=== PATIENT | female | born 1960 | race Caucasian/White ===

== ENCOUNTER 2019-03-14 21:51 | Emergency (ER) | payer OTHER ==
[~2019-03-14] VITALS: Ht 170.2 cm; Wt 70.8 kg
--- OUTSIDE RECORDS SUMMARY | ~2019-03-14 | XMS | Clinical Summary ---
Demographics + + + | Address | [address] | | | [place] [address] | + + + | Home Phone | | + + + | Preferred Language | Unknown | + + + | Marital Status | | + + + | Christianity Affiliation | 1027 | + + + | Race | Unknown | + + + | Ethnic Group | Unknown | + + + Author + + + | Author | [facility] | | | and [place] | + + + | Organization | [facility] | | | and [place] | + + + | Address | Unknown | + + + | Phone | Unavailable | + + + Support + + + + + | Name | Relationship | Address | Phone | + + + + + | Gordon Ball | ECON | [address] | | | | | [place] [address] | | + + + + + Care Team Providers + +------+ + | Care Grocery Manager Name | Role | Phone | + +------+ + | Ahsan Howard MD | PP | | + +------+ + Allergies + + + + + + | Active Allergy | Reactions | Severity | Noted | Comments | | | | | Date | | + + + + + + | Codeine | Itching | Low | 07/22/20 | | | | | | 14 | | + + + + + + | Doxycycline | Hives | Medium | 07/22/20 | | | | | | 14 | | + + + + + + | Hydromorphone Hcl | Other (See Comments) | Medium | 07/22/20 | Memory loss, | | | | | 14 | 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 | | | | | | Willing to try | | | | | | Dilaudid again for | | | | | | pain control. | + + + + + + Medications + + + +---------+------+------+-------+ | Medication | Sig | Dispensed | Refills | Star | End | Statu | | | | | | t | Date | s | | | | | | Date | | | + + + +---------+------+------+-------+ | traZODone | Take 100 mg by mouth | | 0 | | | Activ | | (DESYREL) 100 mg | nightly. | | | | | e | | tablet | | | | | | | + + + +---------+------+------+-------+ | Cyanocobalamin | Take by mouth | | 0 | | | Activ | | (VITAMIN B-12 PO) | Daily. | | | | | e | + + + +---------+------+------+-------+ | Cholecalciferol | Take 2 tablets by | | 0 | | | Activ | | (VITAMIN D PO) | mouth Daily. | | | | | e | + + + +---------+------+------+-------+ | pramipexole | Take 1 mg by mouth 3 | | 0 | | | Activ | | (MIRAPEX) 1 MG | times daily as | | | | | e | | tablet | needed. | | | | | | + + + +---------+------+------+-------+ | Multiple Vitamin | Take by mouth | | 0 | | | Activ | | (MULTI VITAMIN DAILY | Daily. | | | | | e | | PO) | | | | | | | + + + +---------+------+------+-------+ | hydrOXYzine | Take 25 mg by mouth | | 0 | | | Activ | | pamoate (VISTARIL) | as needed for | | | | | e | | 25 mg capsule | Itching. | | | | | | + + + +---------+------+------+-------+ | leflunomide | Take 20 mg by mouth | | 0 | | | Activ | | (ARAVA) 20 mg tablet | Daily. | | | | | e | + + + +---------+------+------+-------+ | cetirizine | Take 10 mg by mouth | | 0 | | | Activ | | (ZYRTEC) 10 mg | Daily. | | | | | e | | tablet | | | | | | | + + + +---------+------+------+-------+ | cyclobenzaprine | Take 0.5-1 tablets | 90 | 3 | 07/0 | | Activ | | (FLEXERIL) 10 mg | by mouth 3 times | tablet | | 9/20 | | e | | tablet | daily as needed for | | | 15 | | | | | Muscle spasms. | | | | | | + + + +---------+------+------+-------+ | gabapentin | Take 1 capsule by | 90 | 1 | 10/0 | | Activ | | (NEURONTIN) 400 mg | mouth 3 times daily. | capsule | | 9/20 | | e | | capsuleIndications: | | | | 15 | | | | S/P lumbar fusion | | | | | | | + + + +---------+------+------+-------+ | citalopram | Take 40 mg by mouth | | 0 | | | Activ | | (CELEXA) 40 mg | Daily. | | | | | e | | tablet | | | | | | | + + + +---------+------+------+-------+ | gabapentin | Take 100 mg by mouth | | 0 | | | Activ | | (NEURONTIN) 100 mg | Daily. | | | | | e | | capsule | | | | | | | + + + +---------+------+------+-------+ | oxyCODONE | Take 5 mg by mouth | | 0 | | | Activ | | (ROXICODONE) 5 mg | every 4 hours as | | | | | e | | tablet | needed for Pain. | | | | | | + + + +---------+------+------+-------+ | levothyroxine | Take 50 mcg by mouth | | 0 | | | Activ | | (SYNTHROID, | every morning | | | | | e | | LEVOTHROID) 50 mcg | (before breakfast). | | | | | | | tablet | | | | | | | + + + +---------+------+------+-------+ | LOSARTAN POTASSIUM | Take 1 tablet by | | 0 | | | Activ | | PO | mouth Daily. | | | | | e | + + + +---------+------+------+-------+ | oxybutynin | Take 2.5 mg by mouth | | 0 | | | Activ | | (DITROPAN) 2.5 mg | 2 times daily | | | | | e | | TABS | (before meals). | | | | | | + + + +---------+------+------+-------+ Active Problems + + + | Problem | Noted Date | + + + | Peripheral neuropathy | 04/05/2016 | + + + | Sacroiliitis | 03/01/2016 | + + + | S/P lumbar fusion | 06/04/2015 | + + + | Hypotension | 05/22/2015 | + + + | Lumbar radiculopathy | 03/17/2015 | + + + | DDD (degenerative disc disease), lumbar | 03/17/2015 | + + + | Spondylolisthesis | 03/17/2015 | + + + Family History + + +------+ + | Medical History | Relation | Name | Comments | + + +------+ + | High blood pressure | Mother | | | + + +------+ + | Thyroid disease | Mother | | | + + +------+ + + +------+ + + | Relation | Name | Status | Comments | + +------+ + + | Father | | | Gun accident | | | | (Age | | | | | 30) | | + +------+ + + | Mother | | | old age | | | | (Age | | | | | 89) | | + +------+ + + | Son | | Alive | | + +------+ + + Social History + +-------+ +--------+------+ | Tobacco Use | Types | Packs/Day | Years | Date | | | | | Used | | + +-------+ +--------+------+ | Never Smoker | | | | | + +-------+ +--------+------+ + +---+---+---+ | Smokeless Tobacco: | | | | | Never Used | | | | + +---+---+---+ + + +---------+ + | Alcohol Use | Drinks/We | oz/Week | Comments | | | ek | | | + + +---------+ + | No | | | | + + +---------+ + + + + | Sex Assigned at | Date Recorded | | | | + + + | Not on file | | + + + + + + + | Job Start Date | Occupation | Industry | + + + + | Not on file | Not on file | Not on file | + + + + + + + + | Travel History | Travel Start | Travel End | + + + + + + | No recent travel history available. | + + Last Filed Vital Signs + + + + | Vital Sign | Reading | Time Taken | + + + + | Blood Pressure | 144/74 | 04/05/20161003 PDT | + + + + | Pulse | 68 | 04/05/20161003 PDT | + + + + | Temperature | 37.4 C (99.3 F) | 05/22/20151599 PDT | + + + + | Respiratory Rate | 18 | 03/01/2016 1355 PDT | + + + + | Oxygen Saturation | 94% | 05/22/20151599 PDT | + + + + | Inhaled Oxygen | - | - | | Concentration | | | + + + + | Weight | 70.8 kg (156 lb) | 04/05/20161003 PDT | + + + + | Height | 172.7 cm (5' 8") | 04/05/20161003 PDT | + + + + | Body Mass Index | 23.72 | 04/05/20161003 PDT | + + + + Plan of Treatment + + + + + | Health Maintenance | Due Date | Last Done | Comments | + + + + + | Vaccine: | | | | | Dtap/Tdap/Td (1 - | 7 | | | | Tdap) | | | | + + + + + | Cervical Cancer | | | | | Screening (Pap) | 8 | | | + + + + + | Vaccine: Zoster (1 | | | | | of 2) | 8 | | | + + + + + | Vaccine: Influenza | | | | | (Season Ended) | 9 | | | + + + + + Implants + +------+--------+ +--------+--------+--------+ | Implanted | Type | Area | Manufacture | Device | Shelf | Model | | | | | r | | Expira | / | | | | | | Identi | tion | Serial | | | | | | fier | Date | / Lot | + +------+--------+ +--------+--------+--------+ | Chips Cancellous 30cc - | | Left: | OSTEOTECH - | | 08/23/ | [id number] | | [id number]: Qty: 1 | | Back | OSTT | | 2017 | | | on 05/20/2015 by Jones Adames | | | | | | /[id number] | | MD Darlene | | | | | | 0-030 | | | | | | | | / | + +------+--------+ +--------+--------+--------+ | Putty Hot Spring 10cc Dbm - | | Left: | OSTEOTECH - | | 02/22/ | [id number] | | [id number]: Qty: 1 | | Back | OSTT | | 2017 | /[id number] | | on 05/20/2015 by Jones Adames | | | | | | 5-032 | | MD Darlene | | | | | | / | + +------+--------+ +--------+--------+--------+ | Graft Infuse Bone Kit Xs - | | Left: | SOFAMOR | | 04/26/ | [id number] | | [id number]: Qty: 1 on | | Back | DANEK - DIV | | 2016 | 0 / | | 05/20/2015 by Jones Adames, | | | MEDTRONIC | | | /[id number] | | | | | - SFDK | | | [id number] | + +------+--------+ +--------+--------+--------+ | Imp Spn Intbdy Xlw | | Left: | NUVASIVE - | | | [id number] | | [id number] | | Back | NVSV | | | 5 / / | | [id number]: Qty: 1 on | | | | | | | | 05/20/2015 by Jones Adames, | | | | | | | | MD | | | | | | | + +------+--------+ +--------+--------+--------+ | Imp Spn Spcr Cornt Xl | | Left: | NUVASIVE - | | | [id number] | | [id number] | | Back | NVSV | | | 5 / / | | [id number]: Qty: 1 on | | | | | | | | 05/20/2015 by Jones Adames, | | | | | | | | MD | | | | | | | + +------+--------+ +--------+--------+--------+ | Screw Polyax Precept 6.5x45 - | | Left: | NUVASIVE - | | | [id number] | | [id number]: Qty: 4 | | Back | NVSV | | | 5A / / | | on 05/20/2015 by Jones Adames | | | | | | | | MD Darlene | | | | | | | + +------+--------+ +--------+--------+--------+ | Screw Set - | | Left: | NUVASIVE - | | | [id number] | | [id number]: Qty: 6 on | | Back | NVSV | | | 0 / / | | 05/20/2015 by Jones Adames, | | | | | | | | MD | | | | | | | + +------+--------+ +--------+--------+--------+ | Santos Ti Prebent Lordtc 70mm - | | Left: | NUVASIVE - | | | [id number] | | [id number]: Qty: 2 on | | Back | NVSV | | | 0 / / | | 05/20/2015 by Jones Adames, | | | | | | | | MD | | | | | | | + +------+--------+ +--------+--------+--------+ | Screw Polyax Prcpt 7.5x45mm - | | Left: | NUVASIVE - | | | [id number] | | [id number]: Qty: 2 | | Back | NVSV | | | 5A / / | | on 05/20/2015 by Jones Adames | | | | | | | Azul Colon MD | | | | | | | + +------+--------+ +--------+--------+--------+ Results Not on filefrom Last 3 Months Insurance + +--------+ +--------+ +---------+------+ | Payer | Benefi | Subscriber | Effect | Phone | Address | Type | | | t Plan | ID | wyatt | | | | | | / | | Dates | | | | | | Group | | | | | | + +--------+ +--------+ +---------+------+ | EM[employer]OYEE [employer] | EBMS | [id number] | 12/28/19 | [phone] | | PPO | | MGMT | PPO | | 15-Pre | 5 | | | | | | | sent | | | | + +--------+ +--------+ +---------+------+ + +--------+ +--------+ + + | Guarantor Name | Accoun | Relation to | Date | Phone | Billing Address | | | t Type | Patient | of | | | | | | | | | | + +--------+ +--------+ + + | Ale Ball | Person | Self [birth year] | [address] | | | al/Fam | | 1960 | [phone] | [place] [address] | | | e[place]raim | | | 9 (Home) | | + +--------+ +--------+ + + Advance Directives Patient has advance care planning documents, and code status on file. For more information, please contact:[facility] [place] [address] + + + + + | Code Status | Date | Date | Comments | | | Activated | Inactivated | | + + + + + | Full Code | 05/20/2015 | 05/22/2015 | | | | 14:26 | 18:58 | | + + + + +
--- OUTSIDE RECORDS SUMMARY | ~2019-03-14 | XMS | Clinical Summary ---
Demographics + + + | Address | [address] | | | [place] [address] | + + + | Home Phone | | + + + | Preferred Language | Unknown | + + + | Marital Status | | + + + | Yazidism Affiliation | Unknown | + + + | Race | Unknown | + + + | Ethnic Group | Unknown | + + + Author + + + | Author | [employer] [facility] [employer] [facility] | + + + | Organization | [facility] | + + + | Address | Unknown | + + + | Phone | Unavailable | + + + Support + + +---------+ + | Name | Relationship | Address | Phone | + + +---------+ + | Nav Mae | ECON | Unknown | | + + +---------+ + | Vira Segura | ECON | Unknown | | + + +---------+ + Care Team Providers + +------+ + | Care Salon/Spa Manager Name | Role | Phone | + +------+ + | Brandon Howard MD | PP | | + +------+ + Allergies + + + + + + | Active Allergy | Reactions | Severity | Noted | Comments | | | | | Date | | + + + + + + | Codeine | Itching | Medium | 01/30/20 | | | | | | 12 | | + + + + + + | Hydromorphone | Hallucinations | Medium | 01/30/20 | | | | | | 12 | | + + + + + + | Doxycycline | Hives | High | 01/30/20 | | | | | | 12 | | + + + + + + | Cephalexin | Rash | Medium | 01/30/20 | | | | | | 12 | | + + + + + + Current Medications + + +--------+---------+------+------+-------+ | Prescription | Sig. | Disp. | Refills | Star | End | Statu | | | | | | t | Date | s | | | | | | Date | | | + + +--------+---------+------+------+-------+ | pramipexole | Take 0.5 mg by mouth | | | | | Activ | | (MIRAPEX) 0.5 MG | nightly. | | | | | e | | tablet | | | | | | | + + +--------+---------+------+------+-------+ | escitalopram | Take 10 mg by mouth | | | | | Activ | | (LEXAPRO) 10 MG | daily. | | | | | e | | tablet | | | | | | | + + +--------+---------+------+------+-------+ | gabapentin | Take 400 mg by mouth | | | | | Activ | | (NEURONTIN) 400 MG | 3 (three) times | | | | | e | | capsule | daily. | | | | | | + + +--------+---------+------+------+-------+ | traZODone | Take 100 mg by mouth | | | | | Activ | | (DESYREL) 100 MG | nightly. | | | | | e | | tablet | | | | | | | + + +--------+---------+------+------+-------+ | hydrOXYzine | Take 25 mg by mouth | | | | | Activ | | (VISTARIL) 25 MG | as needed for | | | | | e | | capsule | Itching. | | | | | | + + +--------+---------+------+------+-------+ | leflunomide | Take 20 mg by mouth | | | | | Activ | | (ARAVA) 20 MG tablet | daily. | | | | | e | + + +--------+---------+------+------+-------+ | Multiple Vitamin | Take 1 tablet by | | | | | Activ | | (MULTIVITAMIN) | mouth daily. | | | | | e | | tablet | | | | | | | + + +--------+---------+------+------+-------+ | lisinopril | Take 40 mg by mouth | | | | | Activ | | (ZESTRIL) 40 MG | daily. | | | | | e | | tablet | | | | | | | + + +--------+---------+------+------+-------+ | cyclobenzaprine | Take 10 mg by mouth | | | | | Activ | | (FLEXERIL) 10 MG | 3 (three) times | | | | | e | | tablet | daily as needed for | | | | | | | | Muscle spasms. | | | | | | + + +--------+---------+------+------+-------+ | solifenacin | Take 10 mg by mouth | | | | | Activ | | (VESICARE) 10 MG | daily. | | | | | e | | tablet | | | | | | | + + +--------+---------+------+------+-------+ | oxyCODONE | Take 1 tablet by | 150 | 0 | 12/3 | | Activ | | (ROXICODONE) 5 MG | mouth every 4 (four) | tablet | | 0/20 | | e | | immediate release | hours as needed for | | | 16 | | | | tabletIndications: | Pain. | | | | | | | Rheumatoid arthritis | | | | | | | | involving multiple | | | | | | | | sites with positive | | | | | | | | rheumatoid factor | | | | | | | | (HCC), Facet | | | | | | | | arthritis of lumbar | | | | | | | | region, Disc | | | | | | | | disorder of lumbar | | | | | | | | region, Stenosis of | | | | | | | | lumbosacral spine, | | | | | | | | Right lumbar | | | | | | | | radiculitis, | | | | | | | | Spondylolisthesis of | | | | | | | | lumbar region, | | | | | | | | Fusion of spine of | | | | | | | | lumbar region | | | | | | | + + +--------+---------+------+------+-------+ | oxyCODONE | Take 1 tablet by | 150 | 0 | 12/0 | | Activ | | (ROXICODONE) 5 MG | mouth every 4 (four) | tablet | | 1/20 | | e | | immediate release | hours as needed for | | | 16 | | | | tabletIndications: | Pain. | | | | | | | Rheumatoid arthritis | | | | | | | | involving multiple | | | | | | | | sites with positive | | | | | | | | rheumatoid factor | | | | | | | | (HCC), Facet | | | | | | | | arthritis of lumbar | | | | | | | | region, Disc | | | | | | | | disorder of lumbar | | | | | | | | region, Stenosis of | | | | | | | | lumbosacral spine, | | | | | | | | Right lumbar | | | | | | | | radiculitis, | | | | | | | | Spondylolisthesis of | | | | | | | | lumbar region, | | | | | | | | Fusion of spine of | | | | | | | | lumbar region | | | | | | | + + +--------+---------+------+------+-------+ | oxyCODONE | Take 1 tablet by | 150 | 0 | 11/0 | | Activ | | (ROXICODONE) 5 MG | mouth every 4 (four) | tablet | | /20 | | e | | immediate release | hours as needed for | | | 16 | | | | tabletIndications: | Pain. | | | | | | | Rheumatoid arthritis | | | | | | | | involving multiple | | | | | | | | sites with positive | | | | | | | | rheumatoid factor | | | | | | | | (HCC), Facet | | | | | | | | arthritis of lumbar | | | | | | | | region, Disc | | | | | | | | disorder of lumbar | | | | | | | | region, Stenosis of | | | | | | | | lumbosacral spine, | | | | | | | | Right lumbar | | | | | | | | radiculitis, | | | | | | | | Spondylolisthesis of | | | | | | | | lumbar region, | | | | | | | | Fusion of spine of | | | | | | | | lumbar region | | | | | | | + + +--------+---------+------+------+-------+ Active Problems + + + | Problem | Noted Date | + + + | Opioid use agreement exists | 06/23/2016 | + + + | Fusion of spine of lumbar region | 06/11/2015 | + + + + + | Overview: Dr. Adames, L3 through 5, 05/20/15. | + + + + + | RA (rheumatoid arthritis) | 03/12/2015 | + + + | Facet arthritis of lumbar region | 03/12/2015 | + + + | Disc disorder of lumbar region | 03/12/2015 | + + + | Stenosis of lumbosacral spine | 03/12/2015 | + + + | Spondylolisthesis of lumbar region | 03/12/2015 | + + + | Urinary incontinence | 03/12/2015 | + + + | Right lumbar radiculitis | 03/12/2015 | + + + | Sleep apnea, obstructive | 03/12/2015 | + + + | Depression with anxiety | 01/30/2012 | + + + + + | Last Assessment & Plan: Patient has a long history of | | depression. It seems to be worse since her estrogen surgery. She | | has been on multiple medications to try and control this. 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 This recent data to suggest this may be related to her | | gastric bypass surgery. He may also be related to pigment build | | up of organo phosphate was in her blood stream after weight loss. | + + Family History + + +------+ + | Medical History | Relation | Name | Comments | + + +------+ + | Early | Father | | | + + +------+ + | Diabetes type II | Maternal | | | | | Grandfath | | | | | er | | | + + +------+ + | Diabetes type II | Maternal | | | | | Grandmoth | | | | | er | | | + + +------+ + | Heart disease | Mother | | | + + +------+ + | Hypertension | Mother | | | + + +------+ + | Diabetes type II | Paternal | | | | | Grandfath | | | | | er | | | + + +------+ + | Diabetes type II | Paternal | | | | | Grandmoth | | | | | er | | | + + +------+ + + +------+ + + | Relation | Name | Status | Comments | + +------+ + + | Brother | | Alive | | + +------+ + + | Brother | | Alive | | + +------+ + + | Father | | | Accidental | | | | (Age | | | | | 42) | | + +------+ + + | Maternal Grandfather | | | | + +------+ + + | Maternal Grandmother | | | | + +------+ + + | Mother | | | | | | | (Age | | | | | 90) | | + +------+ + + | Paternal Grandfather | | | | + +------+ + + | Paternal Grandmother | | | | + +------+ + + | Sister | | Alive | | + +------+ + + Social History + +-------+ +--------+------+ | Tobacco Use | Types | Packs/Day | Years | Date | | | | | Used | | + +-------+ +--------+------+ | Former Smoker | | | | | + +-------+ +--------+------+ + +-------+---+---+ | Smokeless Tobacco: | Snuff | | | | Former User | | | | + +-------+---+---+ + + +---------+ + | Alcohol Use | Drinks/We | oz/Week | Comments | | | ek | | | + + +---------+ + | No | | | | + + +---------+ + + + + | Sex Assigned at | Date Recorded | | | | + + + | Not on file | | + + + Last Filed Vital Signs + + + + | Vital Sign | Reading | Time Taken | + + + + | Blood Pressure | 183/98 | 09/23/2016 1:55 PM PDT | + + + + | Pulse | 67 | 09/23/2016 1:55 PM PDT | + + + + | Temperature | - | - | + + + + | Respiratory Rate | - | - | + + + + | Oxygen Saturation | 95% | 09/23/2016 1:55 PM PDT | + + + + | Inhaled Oxygen | - | - | | Concentration | | | + + + + | Weight | 69.9 kg (154 lb) | 09/23/2016 1:55 PM PDT | + + + + | Height | 170.2 cm (5' 7") | 09/23/2016 1:55 PM PDT | + + + + | Body Mass Index | 24.12 | 09/23/2016 1:55 PM PDT | + + + + Plan [...] | + + + + + | Breast Cancer | | | | | Screening | 8 | | | | (Mammogram) | | | | + + + + + | Colon Cancer | | | | | Screening | 8 | | | | (Colonoscopy) | | | | + + + + + | Vaccine: Zoster (1 | | | | | of 2) | 8 | | | + + + + + | Vaccine: Influenza | | | | | (Season Ended) | 9 | | | + + + + + Results Not on filefrom Last 3 Months Insurance + +--------+ +------+-------+---------+ | Payer | Benefi | Subscriber | Type | Phone | Address | | | t Plan | ID | | | | | | / | | | | | | | Group | | | | | + +--------+ +------+-------+---------+ | COMMERCIAL OTHER | COMMER | [id number] | | | | | | CIAL | | | | | | | GENERI | | | | | | | C PLAN | | | | | + +--------+ +------+-------+---------+ + +--------+ +--------+ + + | Guarantor Name | Accoun | Relation to | Date | Phone | Billing Address | | | t Type | Patient | of | | | | | | | | | | + +--------+ +--------+ + + | ALE ROBERTS | Person | Self [birth year] Work: | [address] | | | al/Fam | | 1960 | [phone] [place] [address] | | | e[place]im | | | [phone] | | + +--------+ +--------+ + +
--- OUTSIDE RECORDS SUMMARY | ~2019-03-14 | XMS | Clinical Summary ---
Demographics + + + | Address | [address] | | | [place] [address] | + + + | Home Phone | | + + + | Preferred Language | Unknown | + + + | Marital Status | | + + + | Temple Affiliation | Unknown | + + + | Race | White | + + + | Ethnic Group | Not or | + + + Author + + + | Author | [facility] | + + + | Organization | [facility] | + + + | Address | Unknown | + + + | Phone | Unavailable | + + + Support + + +---------+ + | Name | Relationship | Address | Phone | + + +---------+ + | Reese Ball | ECON | Unknown | | + + +---------+ + Care Team Providers + +------+ + | Care Devops Engineer Name | Role | Phone | + +------+ + | Ahsan oHward MD | PP | | + +------+ + Source Comments [facility]LE [facility] and [facility] In[facility] Allergies + + + + + + | Active Allergy | Reactions | Severity | Noted | Comments | | | | | Date | | + + + + + + | Codeine | Pruritus | Low | 03/14/20 | | | | | | 14 | | + + + + + + | Hydromorphone (Bulk) | Unknown | High | 03/14/20 | Pt reports | | | | | 14 | confusion and memory | | | | | | loss | + + + + + + | Doxycycline | Hives | High | 03/14/20 | | | | | | 14 | | + + + + + + Current Medications + + +---------+---------+------+------+-------+ | Prescription | Sig. | Disp. | Refills | Star | End | Statu | | | | | | t | Date | s | | | | | | Date | | | + + +---------+---------+------+------+-------+ | citalopram 40 mg | Take 40 mg by mouth | | | | | Activ | | oral tablet | once daily. | | | | | e | + + +---------+---------+------+------+-------+ | gabapentin 400 mg | Take 400 mg by mouth | | | | | Activ | | oral capsule | two times daily. | | | | | e | + + +---------+---------+------+------+-------+ | levothyroxine 75 | Take 75 mcg by mouth | | | | | Activ | | mcg oral tablet | once daily. | | | | | e | + + +---------+---------+------+------+-------+ | | Take 1 tablet by | | | | | Activ | | HYDROcodone-acetamin | mouth every four | | | | | e | | ophen 10-325 mg oral | hours as needed. Not | | | | | | | tablet | to exceed 3250 mg | | | | | | | | of acetaminophen | | | | | | | | from all products | | | | | | | | per 24 hour period. | | | | | | + + +---------+---------+------+------+-------+ | atenolol 25 mg | Take 25 mg by mouth | | | | | Activ | | oral tablet | once daily. | | | | | e | + + +---------+---------+------+------+-------+ | pramipexole 1 mg | Take 1 mg by mouth | | | | | Activ | | oral tablet | three times daily. | | | | | e | + + +---------+---------+------+------+-------+ | cyanocobalamin, | Take by mouth. | | | | | Activ | | vitamin B-12, | Liquid daily | | | | | e | | (VITAMIN B-12) 1,000 | | | | | | | | mcg/mL oral drops | | | | | | | + + +---------+---------+------+------+-------+ | cholecalciferol | Take 400 Units by | | | | | Activ | | 400 unit oral tablet | mouth once daily. | | | | | e | + + +---------+---------+------+------+-------+ | multivitamin oral | Take 1 capsule by | | | | | Activ | | capsule | mouth once daily. | | | | | e | + + +---------+---------+------+------+-------+ | ergocalciferol | Take 1 capsule by | 36 | 0 | 02/2 | | Activ | | 50,000 unit oral | mouth every seven | capsule | | 7/20 | | e | | capsuleIndications: | days. Indications: | | | 15 | | | | vitamin D deficiency | VITAMIN D DEFICIENCY | | | | | | + + +---------+---------+------+------+-------+ | leflunomide 20 mg | Take 1 tablet by | 30 | 3 | 02/2 | | Activ | | oral | mouth once daily. | tablet | | 7/20 | | e | | tabletIndications: | Indications: | | | 15 | | | | rheumatoid arthritis | RHEUMATOID ARTHRITIS | | | | | | + + +---------+---------+------+------+-------+ | pilocarpine 5 mg | Take 1 tablet by | 90 | 11 | 02/2 | | Activ | | oral tablet | mouth three times | tablet | | 7/20 | | e | | | daily. Avoid | | | 15 | | | | | administering with | | | | | | | | high-fat meal. | | | | | | + + +---------+---------+------+------+-------+ | escitalopram | Take 10 mg by mouth | | | | | Activ | | oxalate 10 mg oral | once daily. | | | | | e | | tablet | | | | | | | + + +---------+---------+------+------+-------+ Active Problems + + + | Problem | Noted Date | + + + | Microcytic anemia | 07/09/2014 | + + + | Rheumatoid arthritis (HCC) | 03/14/2014 | + + + + + | Overview: ICD10 | + + + + + | Sicca (HCC) | 03/14/2014 | + + + Social History + +-------+ +--------+------+ | Tobacco Use | Types | Packs/Day | Years | Date | | | | | Used | | + +-------+ +--------+------+ | Never Smoker | | | | | + +-------+ +--------+------+ + + + | Sex Assigned at | Date Recorded | | | | + + + | Not on file | | + + + Last Filed Vital Signs + + + + | Vital Sign | Reading | Time Taken | + + + + | Blood Pressure | 148/81 | 04/22/2015 1:08 PM PDT | + + + + | Pulse | 54 | 04/22/2015 1:08 PM PDT | + + + + | Temperature | - | - | + + + + | Respiratory Rate | - | - | + + + + | Oxygen Saturation | - | - | + + + + | Inhaled Oxygen | - | - | | Concentration | | | + + + + | Weight | 76.7 kg (169 lb) | 04/22/2015 1:08 PM PDT | + + + + | Height | 167.6 cm (5' 6") | 07/03/2014 2:09 PM PDT | + + + + | Body Mass Index | 27.28 | 04/22/2015 1:08 PM PDT | + + + + Plan of Treatment + + + + + | Health Maintenance | Due Date | Last Done | Comments | + + + + + | Influenza (Flu) | | | | | vaccination (#1) | 8 | | | + + [...] | | | + +--------+ +------+-------+---------+ | MULTIPLAN | MULTIP | [phone] | PPO | | | | | SARBJIT | | | | | + +--------+ +------+-------+---------+ + +--------+ +--------+ + + | Guarantor Name | Accoun | Relation to | Date | Phone | Billing Address | | | t Type | Patient | of | | | | | | | | | | + +--------+ +--------+ + + | ALE BALL | Person | Self [birth year] Home: | [address] | | | al/Fam | | 1959 | [phone] | [place] [address] | | | ephraim | | | [phone] | | + +--------+ +--------+ + +
--- OUTSIDE RECORDS SUMMARY | ~2019-03-14 | XMS | Clinical Summary ---
Demographics + + + | Address | [address] | | | [place] [address] | + + + | Home Phone | | + + + | Preferred Language | Unknown | + + + | Marital Status | | + + + | Scientologist Affiliation | 1027 | + + + | Race | Unknown | + + + | Ethnic Group | Unknown | + + + Author + + + | Author | [facility] | | | and [place] | + + + | Organization | [facility] | | | and [...] | | | | | [place] [address] | | + + + + + Care Team Providers + +------+ + | Care Director Park Name | Role | Phone | + [...] | OSTEOTECH - | | 08/23/ | [id number] | | [id number]: Qty: 1 | | Back | OSTT | | 2017 | | | on 05/20/2015 by Jones Adames | | | | | | /[id number] | | MD Darlene | | | | | | 0-030 | | | | | | | | / | + +------+--------+ +--------+--------+--------+ | Putty [place] 10cc Dbm - | | Left: | OSTEOTECH - | | 02/22/ | [id number] | | [id number]: Qty: 1 | | Back | OSTT | | 2017 | /[id number] | | on 05/20/2015 by Jones Adames | | | | | | 5-032 | | MD Darlene | | | | | | / | + +------+--------+ +--------+--------+--------+ | Graft Infuse Bone Kit Xs - | | Left: | SOFAMOR | | 04/26/ | [id number] | | [id number]: Qty: 1 on | | Back | DANEK - DIV | | 2016 | 0 / | | 05/20/2015 by Jones Adames, | | | MEDTRONIC | | | /[id number] | | | | | - SFDK | | | [id number] | + +------+--------+ +--------+--------+--------+ | Imp Spn Intbdy Xlw | | Left: | NUVASIVE - | | | [id number] | | [id number] - | | Back | NVSV | | | 5 / / | | [id number]: Qty: 1 on | | | | | | | | 05/20/2015 by Jones Adames, | | | | | | | | MD | | | | | | | + +------+--------+ +--------+--------+--------+ | Imp Spn Spcr Cornt Xl | | Left: | NUVASIVE - | | | [id number] | | [id number] | | Back | NVSV | | | 5 / / | | [id number]: Qty: 1 on | | | | | | | | 05/20/2015 by Jones Adames, | | | | | | | | MD | | | | | | | + +------+--------+ +--------+--------+--------+ | Screw Polyax Precept 6.5x45 - | | Left: | NUVASIVE - | | | [id number] | | [id number]: Qty: 4 | | Back | NVSV | | | 5A / / | | on 05/20/2015 by Jones Adames | | | | | | | | MD Darlene | | | | | | | + +------+--------+ +--------+--------+--------+ | Screw Set - | | Left: | NUVASIVE - | | | [id number] | | [id number]: Qty: 6 on | | Back | NVSV | | | 0 / / | | 05/20/2015 by Jones Adames, | | | | | | | | MD | | | | | | | + +------+--------+ +--------+--------+--------+ | Santos Ti Prebent Lordtc 70mm - | | Left: | NUVASIVE - | | | [id number] | | [id number]: Qty: 2 on | | Back | NVSV | | | 0 / / | | 05/20/2015 by Jones Adames, | | | | | | | | MD | | | | | | | + +------+--------+ +--------+--------+--------+ | Screw Polyax Prcpt 7.5x45mm - | | Left: | NUVASIVE - | | | [id number] | | [id number]: Qty: 2 | | Back | NVSV [...] | EMPLOYEE BENE ADMIN | EBMS | [id number] | 12/28/19 | [phone] | | PPO | | MGMT | [...] al/Fam | | 1960 | [phone] | [place] [address] | | | ephraim | | | 9 (Home) | | + +--------+ +--------+ + + Advance Directives Patient has advance care planning documents, and code status on file. For more information, please contact:[facility] [place] [address] + + + + + | Code Status | Date | Date | Comments | | | Activated | Inactivated | | + + + + + | Full Code | 05/20/2015 | 05/22/2015 | | | | 14:26 | 18:58 | | + + + + +
--- OUTSIDE RECORDS SUMMARY | ~2019-03-14 | XMS | Clinical Summary ---
Demographics + + + | Address | [address] | | | [place] [address] | + + + | Home Phone | | + + + | Preferred Language | Unknown | + + + | Marital Status | | + + + | Advent Affiliation | Unknown | + + + [...] Team Providers + +------+ + | Care Loss Prevention/Safety District Manager Name | Role | Phone | + +------+ + | Ahsan Howard MD | PP | | + +------+ + Source Comments [facility] Allergies + + + + + + [...] | 1959 | [phone] | [place] [address] | | | ephraim | | | [phone] | | + +--------+ +--------+ + +
--- OUTSIDE RECORDS SUMMARY | ~2019-03-14 | XMS | Clinical Summary ---
Demographics + + + | Address | [address] | | | [place] [address] | + + + | Home Phone | | + + + | Preferred Language | Unknown | + + + | Marital Status | | + + + | Congregation Affiliation | Unknown | + + + | Race | Unknown | + + + | Ethnic Group | Unknown | + + + Author + + + | Author | [facility] | + + + | Organization | [facility] | + + + | [...] Team Providers + +------+ + | Care Skills Auditor Name | Role | Phone | + [...] +------+-------+---------+ | COMMERCIAL OTHER | COMMER | [phone] | | | | | | CIAL [...] Self | [birth year] | Work: | [address] | | | al/Fam | | 1960 | [phone] | [place] [address] | | | ephraim | | | [phone] | | + +--------+ +--------+ + +
[~2019-03-14 21:51] MED LIST: ARAVA20 MG PO; ATENOLOL25 MG PO; ATIVAN0.5 MG PO; BENADRYL25 MG PO; CELEXA40 MG PO; CILOXAN5 ML OU; CIMZIA400 MG; CYCLOBENZAPRINE10 MG PO; DAILY VITAMIN1 EAC2 PO; IBUPROFEN200 M1 PO; IBUPROFEN200 MG PO; LEVOTHYROXINE50 MCG PO; LEVOTHYROXINE75 MCG PO; LEVSIN-SL0.125 MG SL; LEXAPRO10 MG PO; LISINOPRIL40 MG PO; LORTAB 7.5-5001 EACH PO; LOSARTAN POTAS100 MG PO; MELOXICAM15 MG PO; METHOTREXATE2.5 MG; MIRAPEX1 MG PO; NAPROSYN375 MG PO; NEURONTIN400 MG PO; NORCO 5-325 TA1 EACH PO; NORCO 7.5-3251 EACH PO; OXYCODONE HCL5 MG PO; PERCOCET 5-3251 EACH PO; PERCOCET 7.5-31 EACH PO; PREDNISONE20 MG PO; PRILOSEC20 MG PO; SULFAMETHOXAZO1 EAC1 PO; VISTARIL25 MG PO; VITAMIN B12-FO1 EACH PO; VITAMIN D400 UNI2 PO
--- OUTSIDE RECORDS SUMMARY | 2019-03-14 21:54 | XMS ---
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 Silver VISIT COUNT (12 MO.) [address] [place] [address] [place] TOTAL 2 NOTE: Visits indicate total known visits. ED/UCC VISIT TRACKING (12 MO.) 03/14/2019 21:51 [facility] [place] TYPE: Emergency COMPLAINT: - FEVER 12/17/2018 05:32 [facility] [place] TYPE: Emergency DIAGNOSES: - sinus infection ear pain INPATIENT VISIT TRACKING (12 MO.) No inpatient visits to display in this time frame [id number]
== END 2019-03-15 00:33 | disposition home or self-care (01) ==
LOC: ED 21:51
DX: B34.9 Viral infection, unspecified (principal); M06.9 Rheumatoid arthritis, unspecified; I10 Essential (primary) hypertension; E03.9 Hypothyroidism, unspecified; F32.9 Major depressive disorder, single episode, unspecified; F41.9 Anxiety disorder, unspecified; Z79.899 Other long term (current) drug therapy; Z51.81 Encounter for therapeutic drug level monitoring
CPT/HCPCS: 71046; 80053; 81001; 83605; 85025; 85610; 85730; 87502; 99283-25

== ENCOUNTER 2021-03-08 05:06 | Emergency (ER) | payer OTHER ==
[~2021-03-08] VITALS: Ht 170.2 cm; Wt 70.8 kg
--- OUTSIDE RECORDS SUMMARY | 2021-03-08 05:12 | XMS ---
PreManage Notification: NIRU ROBERTS Security Contemporary Or Modern Dancer Events No recent Security Events currently on file CRITERIA MET - PDMP - ED - Positive COVID-19 Lab Result - [facility] CARE PROVIDERS DEB [facility] 03/15/2019-Current PHONE: [phone] Adrienne has no Care Guidelines for this patient. E.Dianna VISIT COUNT (12 MO.) 1 [facility] 1 VER[facility]ICA [place] TOTAL 2 NOTE: Visits indicate total known visits. ED/UCC VISIT TRACKING (12 MO.) 03/08/2021 05:09 VERONICA [place] TYPE: Emergency COMPLAINT: - CHILLS, DEHYDRATED 12/14/2020 14:20 [facility] Arun ZHAO TYPE: Emergency DIAGNOSES: - Personal history of other diseases of the circulatory system - CP - Hyperlipidemia, unspecified - Family history of ischemic heart disease and other diseases of the circulatory system - Chest pain, unspecified - Chest Pain INPATIENT VISIT TRACKING (12 MO.) [facility]2020 [facility] DIAGNOSES: - Chest pain, unspecified - Family history of ischemic heart disease and other diseases of the circulatory system - Hyperlipidemia, unspecified - Personal history of other diseases of the circulatory system [id number]
[2021-03-08] MEDS ORDERED: ZOFRAN4 MG PO (05:47)
== END 2021-03-08 06:07 | disposition home or self-care (01) ==
LOC: ED 05:06
DX: U07.1 COVID-19 (principal); I10 Essential (primary) hypertension; E03.9 Hypothyroidism, unspecified; Z88.5 Allergy status to narcotic agent; Z88.1 Allergy status to other antibiotic agents; Z79.899 Other long term (current) drug therapy
CPT/HCPCS: 99283

== ENCOUNTER 2021-06-07 09:42 | Emergency (ER) | payer OTHER ==
[~2021-06-07] VITALS: Ht 170.2 cm; Wt 70.8 kg
[~2021-06-07 09:42] MED LIST changes: +ZOFRAN4 MG PO
--- OUTSIDE RECORDS SUMMARY | 2021-06-07 09:44 | XMS ---
PreManage Notification: NIRU ROBERTS Security Accounting Instructor Events No recent Security Events currently on file CRITERIA MET - PDMP CARE PROVIDERS DEB [facility] 03/15/2019-Current PHONE: [phone] Adrienne has no Care Guidelines for this patient. E.Dianna VISIT COUNT (12 MO.) 1 [facility] 2 VERONICA [place] TOTAL 3 NOTE: Visits indicate total known visits. 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 therapy 12/14/2020 14:20 [facility] Carito ZHAO TYPE: Emergency DIAGNOSES: - Personal history of other diseases of the circulatory system - CP - Hyperlipidemia, unspecified - Family history of ischemic heart disease and other diseases of the circulatory system - Chest pain, unspecified - Chest Pain INPATIENT VISIT TRACKING (12 MO.) 12/14/2020 14:20 [place] Sera ZHAO TYPE: Surgical Services DIAGNOSES: - Chest pain, unspecified - Family history of ischemic heart disease and other diseases of the circulatory system - Hyperlipidemia, unspecified - Personal history of other diseases of the circulatory system [id number]
[2021-06-07] MEDS ORDERED: CLONIDINE HCL0.1 MG PO (11:56)
== END 2021-06-07 12:12 | disposition home or self-care (01) ==
LOC: ED 09:42
DX: F11.23 Opioid dependence with withdrawal (principal); I10 Essential (primary) hypertension; E03.9 Hypothyroidism, unspecified; Z88.5 Allergy status to narcotic agent; Z88.1 Allergy status to other antibiotic agents; Z79.899 Other long term (current) drug therapy
CPT/HCPCS: 99284

== ENCOUNTER 2021-11-10 22:04 | Emergency (ER) | payer OTHER ==
[~2021-11-10] VITALS: Ht 170.2 cm; Wt 70.8 kg
[~2021-11-10 22:04] MED LIST changes: +CLONIDINE HCL0.1 MG PO
--- OUTSIDE RECORDS SUMMARY | 2021-11-10 22:08 | XMS ---
PreManage Notification: NIRU ROBERTS Security Sql Server Bi Developer Events No recent Security Events currently on file CRITERIA MET - PDMP CARE PROVIDERS DEB [facility] Current PHONE: Unknown Adrienne has no Care Guidelines for this patient. [place]ert VISIT COUNT (12 MO.) 1 [facility] 3 VERONICA [place] TOTAL 4 NOTE: Visits indicate total known visits. ED/UCC VISIT TRACKING (12 MO.) 11/10/2021 22:05 VERONICA [place] TYPE: Emergency COMPLAINT: - SOB 06/07/2021 09:42 VERONICA [place] TYPE: Emergency COMPLAINT: - WITHDRAW DIAGNOSES: - Hypothyroidism, unspecified - Other residential (current) drug therapy - Allergy status to narcotic agent - Opioid dependence with withdrawal - Allergy status to other antibiotic agents - Essential (primary) hypertension 03/08/2021 05:09 [facility]ICA [place] TYPE: Emergency COMPLAINT: - CHILLS, DEHYDRATED DIAGNOSES: - Essential (primary) hypertension - Allergy status to narcotic agent - Other fatigue - COVID-19 - Allergy status to other antibiotic agents - Hypothyroidism, unspecified - Other residential (current) drug therapy 12/14/2020 14:20 [facility] Arun [facility] TYPE: Emergency DIAGNOSES: - Personal history of other diseases of the circulatory system - CP - Hyperlipidemia, unspecified - Family history of ischemic heart disease and other diseases of the circulatory system - Chest pain, unspecified - Chest Pain INPATIENT VISIT TRACKING (12 MO.) 12/14/2020 14:20 [facility] Arun [facility] TYPE: Surgical Services DIAGNOSES: - Chest pain, unspecified - Family history of ischemic heart disease and other diseases of the circulatory system - Hyperlipidemia, unspecified - Personal history of other diseases of the circulatory system [id number]
--- NOTE | 2021-11-12 07:17 | EKG ---
[facility] [address] [place], [place] [address] Signed Normal sinus rhythm Normal ECG No previous ECGs available Confirmed by ANGELA FOURNIER MD ([id number]) on 11/12/2021 7:16:54 AM Electronically Signed By: ANGELA FOURNIER MD 11/12/21 07 PATIENT NAME: NIRU ROBERTS Electrocardiogram DATE OF : 56 PHYSICIAN: ANGELA FOURNIER MD REPORT #: [id number] REPORT IS CONFIDENTIAL AND NOT TO BE RELEASED WITHOUT AUTHORIZATION
== END 2021-11-10 23:44 | disposition home or self-care (01) ==
LOC: ED 22:04
DX: T40.411A Poisoning by fentanyl or fentanyl analogs, accidental (unintentional), initial encounter (principal); I10 Essential (primary) hypertension; E03.9 Hypothyroidism, unspecified; Z88.5 Allergy status to narcotic agent; Z88.1 Allergy status to other antibiotic agents; Z79.899 Other long term (current) drug therapy
CPT/HCPCS: 71045; 80053; 81001; 84443; 85025; 93005; 93010; 99284-25; G0480

== ENCOUNTER 2022-09-30 06:55 | Day surgery (SDC) | payer BC, OTHER ==
[~2022-09-30] VITALS: Ht 170.2 cm; Wt 59.6 kg
[~2022-09-30 06:55] MED LIST changes: +BACLOFEN10 MG PO; +BUPRENORPHIN-N1 EACH SL; +BUSPIRONE HCL5 MG PO; +DITROPAN XL5 MG PO; +LIPITOR40 MG PO; +OMEPRAZOLE40 MG PO; +ROPINIROLE HCL0.5 MG PO
--- NOTE | 2022-09-30 08:58 | NUR ---
09/30/22 0858 Emma Stokes 0804 PT ARRIVED TO PACU WITH ORAL AIRWAY IN PLACE AND 10L VIA MASK. PT ASLEEP AND RESP EVEN AND UNLABORED.
--- NOTE | 2022-09-30 10:18 | NUR ---
DUSTIN REID WITH OUT ANY PROBLEMS.
--- NOTE | 2022-09-30 12:01 | NUR ---
PT ALERT, ORIENTED AND MENTIONED SHE IS CHILLED AND HAS HAD PREVIOUS SCOPES. IT WAS OBVIOUS PT IS UNCOMFORTABLE, GAVE BLESSING AND HAD SAW HANDLE ASSEMBLER ATTEND TO PT.
--- NOTE | 2022-09-30 12:21 | OR ---
[facility] [address] [place], [place] [address] Signed DATE OF OPERATION: 09/30/2022 SURGEON: Shirley Resendiz MD PREOPERATIVE DIAGNOSIS: Proximal esophageal dysphagia due to web (10 mm). POSTOPERATIVE DIAGNOSES: 1. Proximal esophageal dysphagia due to web (10 mm). 2. GE junction at 32 cm. PROCEDURE: EGD with CLOtest and biopsies of the gastric pouch and dilation to 54-Chinese with Dominican dilators. ESTIMATED BLOOD LOSS: None. 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 In 2016, she underwent a Janet-en-Y gastric bypass in [place], [place]. She had internal hernia that had to be repaired by her surgeon. She had MRSA in the wound and had to heal in secondarily. I met her here in [place], [place], when she needed the suture granuloma removed. I helped her with the colonoscopy in 2015, which was unremarkable. She has been in various pain regimens over the years because of mainly spine issues. She is now on Suboxone each day along with ibuprofen 800 mg each day. In the last nine months or so, she has had proximal esophageal dysphagia to solid foods. She has lost at least 40 pounds. She went to her primary care provider. A barium swallow demonstrated several proximal esophageal cervical webs. There is no hiatal hernia. Of course, the gastric bypass anatomy is evident. She was asked to see me with respect to the above. She told me she is down to eating liquids. She is using Prilosec. In the office, we reviewed the above findings together. I gave her a booklet on upper endoscopy. We reviewed that together. We reviewed the idea of dilation. She understands there is risk including, but not limited to gas bloating, crampy abdominal pain, bleeding, perforation requiring surgery, and missed diagnosis. She also understands the need for monitored anesthesia care given the location and the need to dilate this web. She had expressed understanding and wished to proceed. PROCEDURE NOTE: Ale was taken into our endoscopy suite and placed in the supine semi-recumbent Electronically Signed By: SHIRLEY RESENDIZ MD 09/30/22 1221 PATIENT NAME: ALE ROBERTS OPERATIVE REPORT DATE OF : 56 REPORT #: [id number] PHYSICIAN: SHIRLEY RESENDIZ MD PCP: SHA BOYD MD REPORT IS CONFIDENTIAL AND NOT TO BE RELEASED WITHOUT AUTHORIZATION [facility] [address] [place], [place] [address] Signed position under general endotracheal tube anesthesia. We applied lubrication to her lips. The adult gastroscope had been introduced and we immediately encountered a 10 mm web as we came into the very proximal esophagus. With gentle pressure, we went through the web and then moved down through the esophagus quite readily into the gastric pouch. We looked at the end of the Janet-en-Y limb and then we returned, went all the way down to Janet-en-Y limb about 20 cm. Everything appeared very healthy. The anastomosis from the Janet limb to the gastric pouch was very healthy as well. We went ahead and took a biopsy of the gastric pouch for pathologic review as well as CLOtest. However, it looked quite healthy. The Z-line measures out 32 cm from her incisors. It all appeared quite healthy without any irritation in the distal esophagus or Blanc's esophagus. We then kristie the scope all the way back up and again re-examined this area of the proximal esophageal web. We then sequentially dilated her over wire up to 54-Chinese. We never passed the dilator beyond about 25 cm. We could feel the resistance and we were very careful each time. After each dilation, then we reinserted the gastroscope and reexamined the entire esophagus and gastric pouch. We found no untoward events. We could easily see the linear split in the proximal esophageal mucosa from the dilation. After this, the gas had been suctioned out and the gastroscope removed. Ale tolerated the procedure quite well. RECOMMENDATIONS: I will see Ale back in my office in 7 to 14 days to review her results. I advised her not to use any ibuprofen for one week and she will need to stay on liquids for at least a week or so until she feels the swelling subside. Shirley Resendiz MD ALB/MODL /[id number] cc: MD Sha Dial MD Copies: SHIRLEY RESENDIZ MD Electronically Signed By: SHIRLEY RESENDIZ MD 09/30/22 1221 PATIENT NAME: ALE ROBERTS OPERATIVE REPORT DATE OF : 56 REPORT #: [id number] PHYSICIAN: SHIRLEY RESENDIZ MD PCP: SHA BOYD MD REPORT IS CONFIDENTIAL AND NOT TO BE RELEASED WITHOUT AUTHORIZATION [facility] [address] [place], [place] [address] Signed SHA BOYD MD ~ Electronically Signed By: SHIRLEY RESENDIZ MD 09/30/22 1221 PATIENT NAME: ALE ROBERTS LAINE OPERATIVE REPORT DATE OF : 56 REPORT #: [id number] PHYSICIAN: SHIRLEY RESENDIZ MD PCP: SHA BOYD MD REPORT IS CONFIDENTIAL AND NOT TO BE RELEASED WITHOUT AUTHORIZATION
--- NOTE | 2022-10-04 22:29 | PATH ---
[facility] [address] [place], [place] [address] Signed SPECIMEN(S): A GASTRIC POUCH BIOPSY SPECIMEN SOURCE: A. GASTRIC POUCH BIOPSY CLINICAL HISTORY: EGD. Esophageal webs, esophageal dysphagia. FINAL PATHOLOGIC DIAGNOSIS: Gastric pouch, biopsy: - No significant histopathologic alterations. COMMENT: The sections through the gastric biopsies show fragments of histologically unremarkable antral and oxyntic mucosa. There is no evidence of acute or chronic inflammation. There is no evidence of H. pylori, intestinal metaplasia, abnormal infiltrates or neoplasia. TWK:caw:C2NR MICROSCOPIC EXAMINATION: Histologic sections of all submitted blocks are examined by light microscopy. These findings, together with the gross examination, support the pathologic diagnosis. GROSS DESCRIPTION: The specimen, labeled "SN, gastric pouch biopsy," is received in formalin and consists of one mcfadden soft tissue fragment that measures 0.4 cm in greatest dimension. The specimen is entirely submitted in cassette (A1). JS (under the direct supervision of a pathologist) The Gross Description was prepared using a voice recognition system. The report was reviewed for accuracy; however, sound-alike word errors, addition and/or deletions may occur. If there is any question about this report, please contact Client Services. PERFORMING LABORATORY: The technical component was performed by [facility], [address] [place] [id number] (CLIA# [id number]). The professional interpretation was performed by [facility], [facility], [address] [place] [address] (CLIA#: [id number]). PATIENT NAME: NIRU ROBERTS PATHOLOGY DATE OF : 56 REPORT #: [id number] PHYSICIAN: [facility] PCP: SHA BOYD MD REPORT IS CONFIDENTIAL AND NOT TO BE RELEASED WITHOUT AUTHORIZATION [facility] [address] [place] [address] [place], [place] [address] Signed Diagnostician: Pierre Damon MD Pathologist Electronically Signed 10/04/2022 Copies: ~ PATIENT NAME: NIRU ROBERTS PATHOLOGY DATE OF : 56 REPORT #: [id number] PHYSICIAN: [facility] PCP: SHA BOYD MD REPORT IS CONFIDENTIAL AND NOT TO BE RELEASED WITHOUT AUTHORIZATION
== END 2022-09-30 10:50 | disposition home or self-care (01) ==
LOC: OPS 06:55 → DS 06:55 → OPS 08:15 → DS 09:00 → OPS 10:50
PROVIDERS: ATTEND Colon & Rectal Surgery
PROC: 0DB68ZX Excision of Stomach, Via Natural or Artificial Opening Endoscopic, Diagnostic (ICD-10-PCS; principal; 2022-09-30 08:15)
DX: Q39.4 Esophageal web (principal); R13.10 Dysphagia, unspecified
CPT/HCPCS: 36415; 87077; J0330; J0461; J1100; J2405; J2704; J7121

== ENCOUNTER 2024-08-30 01:46 | Emergency (ER) | payer MEDICARE ==
[~2024-08-30] VITALS: Ht 170.2 cm; Wt 73.4 kg
[~2024-08-30 01:46] MED LIST changes: +CIPROFLOXACIN500 MG PO; +ESCITALOPRAM OX20 MG PO; +GABAPENTIN400 MG PO; +HYDROXYZINE PAM25 MG PO; +IBUPROFEN800 MG PO; +OXYBUTYNIN CHLO15 MG PO; +RINVOQ ER15 MG PO
[2024-08-30 02:18] LABS: BILIRUBIN, URINE NEGATIVE (negative); BLOOD/HGB, URINE TRACE-I (Negative); KETONE, URINE NEGATIVE (Negative); LEUK ESTERASE, URINE NEGATIVE (negative); NITRITE, URINE NEGATIVE (negative); PH, URINE 5.5 (5-7)
[2024-08-30 02:24] LABS: EPITHELIAL CELLS, URINE SQUAMOUS 1+ /lpf (0-1+)
[2024-08-30 02:26] LABS: BACTERIA, URINE RARE /hpf (negative); CASTS, URINE NONE SEEN \\lpf; COLLECTION TYPE, URINE CLEAN CATCH; CRYSTALS, URINE NONE SEEN (0-1+); REFLEX CULTURE, URINE No (No)
[2024-08-30 02:32] LABS: AMPHETAMINES, URINE NEGATIVE (NEGATIVE); BARBITURATES, URINE NEGATIVE (NEGATIVE); BENZODIAZEPINE, URINE NEGATIVE (NEGATIVE); BUPRENORPHINE, URINE POSITIVE (NEGATIVE); CANNABINOID, URINE NEGATIVE (NEGATIVE); COCAINE, URINE NEGATIVE (NEGATIVE); ECSTASY, URINE NEGATIVE (NEGATIVE); FENTANYL, URINE NEGATIVE (NEGATIVE); METHADONE, URINE NEGATIVE (NEGATIVE); OPIATES, URINE NEGATIVE (NEGATIVE); OXYCODONE, URINE NEGATIVE (NEGATIVE); PHENCYCLIDINE, URINE NEGATIVE (NEGATIVE)
[2024-08-30 03:29] LABS: BASOPHILS 2.3 % (0-2); EOSINOPHILS 2.2 % (0-6); HEMOGLOBIN 11.1 g/dL (12.0-18.0); LYMPHOCYTES 8.9 % (24-44); MCHC 33.7 g/dl (30-36); MCV 88.9 fl (81-99); MONOCYTES 6.4 % (0-12); NEUTROPHILS 80.2 % (39-80); PLATELET COUNT 151 K/uL (140-440); RBC 3.71 M/ul (4.3-5.7); RDW 15.7 (10.5-15.0)
[2024-08-30] MEDS ORDERED: CEFTRIAXONE/SODIUM CHLORIDE 2 GM/100 ML PIGGYBACK IV ONE (03:30)
[2024-08-30] MEDS ORDERED: SODIUM CHLORIDE 0.9% 1,000 ML IV PRN (03:30)
[2024-08-30 03:40] LABS: INR 1.03 (0.80-1.30); PARTIAL THROMBOPLASTIN TIME 24.3 Sec (22.9-41.3); PROTIME 12.8 Sec (11.2-14.2)
[2024-08-30 03:44] LABS: ALBUMIN 3.6 g/dL (3.4-5.0); ALBUMIN/GLOBULIN RATIO 1.13 (1.1-2.4); ALCOHOL, MEDICAL <3 ng/dL (<3); ALKALINE PHOSPHATASE 78 U/L (46-116); ALT (SGPT) 42 U/L (14-59); ANION GAP 8.8 (7-21); AST (SGOT) 24 U/L (15-37); BILIRUBIN, TOTAL 0.5 ng/dL (0.2-1.0); CARBON DIOXIDE 33 mmol/L (21-32); CHLORIDE 101 mmol/L (98-107); CREATININE, SERUM 1.18 mg/dL (0.55-1.02); GLOMERULAR FILTRATION RATE,EST 51 mL/min (>60); POTASSIUM 4.8 mmol/L (3.5-5.1); PROTEIN, TOTAL 6.8 g/dL (6.4-8.2); UREA NITROGEN 17 mg/dL (7-18)
[2024-08-30 06:20] VITALS: BP 109/62
== END 2024-08-30 06:20 | disposition home or self-care (01) ==
LOC: ED 01:46
PROVIDERS: Emergency Medicine
DX: R41.82 Altered mental status, unspecified (principal); M06.9 Rheumatoid arthritis, unspecified; G25.81 Restless legs syndrome; I10 Essential (primary) hypertension; E03.9 Hypothyroidism, unspecified; E78.00 Pure hypercholesterolemia, unspecified; Z88.1 Allergy status to other antibiotic agents; Z88.5 Allergy status to narcotic agent; Z79.890 Hormone replacement therapy; Z79.899 Other long term (current) drug therapy
CPT/HCPCS: 36415; 51702; 70450; 71045; 80053; 80307; 81001; 82140; 83605; 85025; 85610; 85730; 99285-25; G0480; J0696

== ENCOUNTER 2024-09-12 06:33 | Emergency (ER) | payer MEDICARE ==
[~2024-09-12] VITALS: Ht 170.2 cm; Wt 69.5 kg
--- OUTSIDE RECORDS SUMMARY | 2024-09-12 06:36 | XMS ---
PreManage Notification: NIRU ROBERTS Security Eff[employer] Compounder Events No recent Security Events currently on file CRITERIA MET - [facility] - 2 Visits in 30 Days CARE PROVIDERS -, Sampson Amador- Dentist: Sales Agent [employer] [facility] PHONE: [phone] Adrienne has no Care Guidelines for this patient. Silver VISIT COUNT (12 MO.) 2 [facility] TOTAL 2 NOTE: Visits indicate total known visits. 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
[2024-09-12 07:17] LABS: BILIRUBIN, URINE NEGATIVE (negative); BLOOD/HGB, URINE NEGATIVE (Negative); KETONE, URINE NEGATIVE (Negative); LEUK ESTERASE, URINE TRACE (negative); NITRITE, URINE NEGATIVE (negative); PH, URINE 6.5 (5-7)
[2024-09-12 07:28] LABS: BACTERIA, URINE NONE SEEN /hpf (negative); CASTS, URINE HYALINE 2+ \\lpf; COLLECTION TYPE, URINE CLEAN CATCH; CRYSTALS, URINE NONE SEEN (0-1+); EPITHELIAL CELLS, URINE SQUAMOUS 2+ /lpf (0-1+); RED BLOOD CELLS, URINE 0-1 /hpf (0-5); REFLEX CULTURE, URINE No (No); WHITE BLOOD CELLS, URINE 0-1 /HPF (0-5)
[2024-09-12 07:57] LABS: PH, VENOUS 7.362 (7.31-7.41)
[2024-09-12 08:01] LABS: BASOPHILS 6.6 % (0-2); EOSINOPHILS 1.1 % (0-6); HEMATOCRIT 33.7 % (35.0-50.0); HEMOGLOBIN 11.1 g/dL (12.0-18.0); LYMPHOCYTES 8.9 % (24-44); MCH 29.8 (27-36); MCV 90.3 fl (81-99); MONOCYTES 6.4 % (0-12); PLATELET COUNT 204 K/uL (140-440); RBC 3.73 M/ul (4.3-5.7); RDW 15.8 (10.5-15.0)
[2024-09-12 08:16] LABS: ALBUMIN 3.9 g/dL (3.4-5.0); ALBUMIN/GLOBULIN RATIO 1.34 (1.1-2.4); ANION GAP 13.3 (7-21); BILIRUBIN, TOTAL 0.6 ng/dL (0.2-1.0); BUN/CREATININE RATIO 10.69 (6.0-28.6); CALCIUM 8.9 mg/dL (8.5-10.1); CREATININE, SERUM 1.87 mg/dL (0.55-1.02); POTASSIUM 4.3 mmol/L (3.5-5.1); PROTEIN, TOTAL 6.8 g/dL (6.4-8.2)
[2024-09-12 08:30] LABS: AMPHETAMINES, URINE NEGATIVE (NEGATIVE); BARBITURATES, URINE NEGATIVE (NEGATIVE); BENZODIAZEPINE, URINE NEGATIVE (NEGATIVE); BUPRENORPHINE, URINE POSITIVE (NEGATIVE); COCAINE, URINE NEGATIVE (NEGATIVE)
[2024-09-12 08:56] LABS: CANNABINOID, URINE NEGATIVE (NEGATIVE); ECSTASY, URINE NEGATIVE (NEGATIVE); METHADONE, URINE NEGATIVE (NEGATIVE); OPIATES, URINE NEGATIVE (NEGATIVE); OXYCODONE, URINE NEGATIVE (NEGATIVE); PHENCYCLIDINE, URINE NEGATIVE (NEGATIVE)
[2024-09-12 09:38] VITALS: BP 103/66
== END 2024-09-12 09:38 | disposition home or self-care (01) ==
LOC: ED 06:33
PROVIDERS: Family Medicine
DX: S09.90XA Unspecified injury of head, initial encounter (principal); N28.9 Disorder of kidney and ureter, unspecified; I10 Essential (primary) hypertension; E03.9 Hypothyroidism, unspecified; E78.00 Pure hypercholesterolemia, unspecified; G47.30 Sleep apnea, unspecified; G25.81 Restless legs syndrome; M06.9 Rheumatoid arthritis, unspecified; Z88.1 Allergy status to other antibiotic agents; Z88.5 Allergy status to narcotic agent; Z79.890 Hormone replacement therapy; Z79.899 Other long term (current) drug therapy; W19.XXXA Unspecified fall, initial encounter; Z91.81 History of falling
CPT/HCPCS: 36415; 70450; 80053; 80307; 81001; 82803; 85025; 99284-25

== ENCOUNTER 2025-01-12 12:39 | Emergency (ER) | payer MEDICARE ==
[~2025-01-12] VITALS: Ht 170.2 cm; Wt 78.4 kg
[2025-01-12] MEDS ORDERED: EPINEPHrine HCL 1 MG/10 ML SYR IV ONE (12:50)
[2025-01-12] MEDS ORDERED: NACL 0.45% IV ONE (13:00)
[2025-01-12] MEDS ORDERED: HEPARIN SOD IV ONE (13:00)
[2025-01-12] MEDS ORDERED: LIDOCAINE HCL IV PRN (13:00)
[2025-01-12] MEDS ORDERED: HEParin SOD (PORCINE) 5,000 UNIT/ML SYR IV ONE (13:00)
[2025-01-12 13:02] LABS: HEMATOCRIT 39.6 % (35.0-50.0); HEMOGLOBIN 12.9 g/dL (12.0-18.0); LYMPHOCYTES 7.7 % (24-44); MCH 30.5 (27-36); MCHC 32.5 g/dl (30-36); MONOCYTES 3.8 % (0-12); NEUTROPHILS 88.5 % (39-80); PLATELET COUNT 172 K/uL (140-440); RBC 4.21 M/ul (4.3-5.7); RDW 16.9 (10.5-15.0)
[2025-01-12 13:29] LABS: ALBUMIN 3.3 g/dL (3.4-5.0); ALBUMIN/GLOBULIN RATIO 1.06 (1.1-2.4); BILIRUBIN, TOTAL 0.7 mg/dL (0.2-1.0); BUN/CREATININE RATIO 11.7 (6.0-28.6); CALCIUM 7.2 mg/dL (8.5-10.1); CREATININE, SERUM 3.76 mg/dL (0.55-1.02); MAGNESIUM 2.9 mg/dL (1.8-2.4); PROTEIN, TOTAL 6.4 g/dL (6.4-8.2)
[2025-01-12] MEDS ORDERED: ASPIRIN 81 MG CHEW PO ONE (13:30)
[2025-01-12 13:45] LABS: ANION GAP 23.2 (7-21)
[2025-01-12 13:46] LABS: POTASSIUM 9.2 mmol/L (3.5-5.1)
[2025-01-12] MEDS ORDERED: BUSPIRONE HCL10 MG PO (14:05)
[2025-01-12] MEDS ORDERED: FOLIC ACID1 MG PO (14:07)
[2025-01-12] MEDS ORDERED: TERBINAFINE HC250 MG PO (14:07)
[2025-01-12 15:06] VITALS: BP 148/128
--- NOTE | 2025-01-12 18:32 | EKG ---
[facility] [address] [place] [address] Signed Accelerated Junctional rhythm Right axis deviation Low voltage QRS ST elevation, consider anterior injury or acute infarct ACUTE [place] / STEMI Abnormal ECG When compared with ECG of 12-Jun-2023 Accelerated Junctional rhythm has replaced Normal sinus rhythm ST elevation is now present Confirmed by Jeremy Rico MD ([id number]) on 01/12/2025 6:32:27 PM Electronically Signed By: JEREMY RICO MD 01/12/25 183 PATIENT NAME: NIRU ROBERTS Electrocardiogram DATE OF : 56 PHYSICIAN: JEREMY RICO MD REPORT #: [id number] REPORT IS CONFIDENTIAL AND NOT TO BE RELEASED WITHOUT AUTHORIZATION
== END 2025-01-12 13:35 | disposition short-term general hospital (02) ==
LOC: ED 12:39
PROVIDERS: Emergency Medicine
DX: I21.09 ST elevation (STEMI) myocardial infarction involving other coronary artery of anterior wall (principal); E87.5 Hyperkalemia; I10 Essential (primary) hypertension; E03.9 Hypothyroidism, unspecified; Z88.5 Allergy status to narcotic agent; Z88.1 Allergy status to other antibiotic agents; Z79.890 Hormone replacement therapy; Z79.899 Other long term (current) drug therapy
CPT/HCPCS: 36415; 36680; 71045; 80053; 83605; 83735; 84484; 85025; 87040; 99291; A9270; J0171; J1644; J2003

== ENCOUNTER 2025-02-19 08:21 | Inpatient (IN) | payer MEDICARE ==
[~2025-02-19] VITALS: Ht 170.2 cm; Wt 73.9 kg
[2025-02-19] VITALS (12 sets, daily range): BP systolic 96–127; BP diastolic 43–99
[~2025-02-19 08:21] MED LIST changes: +BUSPIRONE HCL10 MG PO; +FOLIC ACID1 MG PO; +TERBINAFINE HC250 MG PO
[2025-02-19] MEDS ORDERED: NALOXONE HCL 2 MG/2 ML SYR NAS ONE ×2 (09:00→14:30)
[2025-02-19 09:20] LABS: BASOPHILS 0.3 % (0-2); EOSINOPHILS 1.9 % (0-6); HEMATOCRIT 31.5 % (35.0-50.0); HEMOGLOBIN 10.5 g/dL (12.0-18.0); LYMPHOCYTES 29.7 % (24-44); MCH 31.2 (27-36); MCHC 33.4 g/dl (30-36); MCV 93.3 fl (81-99); MONOCYTES 9.6 % (0-12); NEUTROPHILS 58.5 % (39-80); PLATELET COUNT 161 K/uL (140-440); RBC 3.37 M/ul (4.3-5.7); RDW 16.9 (10.5-15.0)
[2025-02-19 09:30] LABS: INR 1.06 (0.80-1.30); PROTIME 13.7 Sec (11.2-14.2)
[2025-02-19] MEDS ORDERED: NOREPINEPHRINE BITARTRATE 250 ML IV SCH (09:30)
[2025-02-19] MEDS ORDERED: SODIUM CHLORIDE 0.9% 1,000 ML IV PRN ×2 (09:30→13:00)
[2025-02-19 09:32] LABS: PARTIAL THROMBOPLASTIN TIME 27.8 Sec (22.9-41.3)
[2025-02-19 09:44] LABS: ALBUMIN 3.7 g/dL (3.4-5.0); ALBUMIN/GLOBULIN RATIO 1.12 (1.1-2.4); ANION GAP 14.7 (7-21); BILIRUBIN, TOTAL 0.5 mg/dL (0.2-1.0); BUN/CREATININE RATIO 22.34 (6.0-28.6); CALCIUM 9.1 mg/dL (8.5-10.1); CREATININE, SERUM 2.64 mg/dL (0.55-1.02); POTASSIUM 4.7 mmol/L (3.5-5.1)
[2025-02-19 09:46] LABS: BILIRUBIN, URINE NEGATIVE (negative); BLOOD/HGB, URINE NEGATIVE (Negative); KETONE, URINE NEGATIVE (Negative); LEUK ESTERASE, URINE NEGATIVE (negative); NITRITE, URINE NEGATIVE (negative)
[2025-02-19 09:50] LABS: CANNABINOID, URINE NEGATIVE (NEGATIVE)
[2025-02-19 09:55] LABS: ALCOHOL, MEDICAL <3 ng/dL (<3); TSH, 3RD GENERATION 4.168 uIU/mL (0.358-3.740)
[2025-02-19 09:58] LABS: EPITHELIAL CELLS, URINE SQUAMOUS 1+ /lpf (0-1+); RED BLOOD CELLS, URINE 0-1 /hpf (0-5); WHITE BLOOD CELLS, URINE 0-1 /HPF (0-5)
[2025-02-19 09:59] LABS: BACTERIA, URINE NONE SEEN /hpf (negative)
[2025-02-19 10:00] LABS: CASTS, URINE NONE SEEN \\lpf; COLLECTION TYPE, URINE CATH; REFLEX CULTURE, URINE No (No)
[2025-02-19 10:19] LABS: AMPHETAMINES, URINE NEGATIVE (NEGATIVE); BARBITURATES, URINE NEGATIVE (NEGATIVE); BENZODIAZEPINE, URINE NEGATIVE (NEGATIVE); BUPRENORPHINE, URINE POSITIVE (NEGATIVE); COCAINE, URINE NEGATIVE (NEGATIVE); ECSTASY, URINE NEGATIVE (NEGATIVE); FENTANYL, URINE NEGATIVE (NEGATIVE); METHADONE, URINE NEGATIVE (NEGATIVE); OPIATES, URINE NEGATIVE (NEGATIVE); OXYCODONE, URINE NEGATIVE (NEGATIVE); PHENCYCLIDINE, URINE NEGATIVE (NEGATIVE)
[2025-02-19] MEDS ORDERED: CEFTRIAXONE SODIUM 2 GM VIAL ONE (10:46)
[2025-02-19] MEDS ORDERED: AZITHROMYCIN 500 MG in DEXTROSE 5% 250 ML IV ONE (11:00)
[2025-02-19] MEDS ORDERED: CEFTRIAXONE SODIUM 2 GM in SODIUM CHLORIDE 0.9% 100 ML IV ONE (11:00)
[2025-02-19] MEDS ORDERED: SODIUM CHLORIDE 0.9% 1,000 ML IV ONE (11:00)
[2025-02-19 11:16] LABS: LACTIC ACID, BLOOD 1.7 mmol/L (0.4-2.0)
[2025-02-19 11:56] LABS: PH, VENOUS 7.184 (7.31-7.41)
[2025-02-19 12:15] LABS: LACTIC ACID, BLOOD 0.5 mmol/L (0.4-2.0)
[2025-02-19] MEDS ORDERED: ondansetron HCL 4 MG/2 ML VIAL IV PRN (13:00)
[2025-02-19] MEDS ORDERED: HYDROCORTISONE SOD SUCCINATE 100 MG/2 ML VIAL IV SCH (13:00)
[2025-02-19] MEDS ORDERED: ACETAMINOPHEN 325 MG TAB PO PRN (13:00)
[2025-02-19 13:16] LABS: INFLUENZA B NAA NEGATIVE (NEGATIVE); RESPIRATORY SYNCYTIAL VIR NAA NEGATIVE (NEGATIVE)
--- NOTE | 2025-02-19 15:00 | NUR ---
Patient arrives to CCU on stretcher, unresponsive. Bipap in place settings per RT. Norepi gtt verified at bedside. Pt afebrile. HRR, Lungs clear/dim, bowel tones active. Skin grossly intact. L femoral 3 lumen line assessed WNL. Nguyen cath in place draining clear yellow urine. Pt unable to answer hx and assessment questions at this time. No family present at bedside. Bed alarm in place, 1:1 nurse visualization at this time
[2025-02-19 15:27] LABS: BASE EXCESS, BLOOD GAS -5.6 mmol/L (-2-2); HCO3, BLOOD GAS 21.1 mmol/L (22-26); O2 SATURATION, BLOOD GAS 98.8 % (95.0-100.0); PH, BLOOD GAS 7.29 (7.35-7.45); TOTAL CO2, BLOOD GAS 22.5
[2025-02-19] MEDS ORDERED: SODIUM CHLORIDE 0.9% 1,000 ML IV SCH (16:15)
--- NOTE | 2025-02-19 16:52 | NUR ---
patient receiving ultrasound. Noted apneic periods where patient frequently has no respiratory effort and spo2 drops to 60% range. With touch/talk patient awakens and resumes inspiratory effort. Levophed gtt remains infusing, titrating as appropriate. IVF infusing at maintenance rate. Nguyen draining clear yellow urine. Dr Delgado at bedside to assess patient.
[2025-02-19] MEDS ORDERED: BUPRENO-NALOX1 EACH SL (17:30)
[2025-02-19] MEDS ORDERED: AMLODIPINE BESYL5 MG PO (17:31)
[2025-02-19] MEDS ORDERED: AMIODARONE HCL200 MG PO (17:31)
[2025-02-19] MEDS ORDERED: ELIQUIS2.5 MG PO (17:31)
[2025-02-19] MEDS ORDERED: ATORVASTATIN CA40 MG PO (17:32)
[2025-02-19] MEDS ORDERED: PREGABALIN100 MG PO (17:33)
--- NOTE | 2025-02-19 17:34 | NUR ---
Bipap settings per RT. fio2 increased to 30%. Titrating levophed, patient BP stable. 1:1 ELECTRIC TRIPPER MACHINE OPERATOR direct obs in room.
[2025-02-19 17:35] LABS: ANION GAP 16.3 (7-21); BUN/CREATININE RATIO 25.9 (6.0-28.6); CALCIUM 8.3 mg/dL (8.5-10.1); CREATININE, SERUM 1.66 mg/dL (0.55-1.02); POTASSIUM 4.3 mmol/L (3.5-5.1)
--- NOTE | 2025-02-19 18:36 | NUR ---
At this time patient is titrated off of norepi gtt. BP 108/67 with MAP of 73. Patient resting in bed with bipap in place. No changes to assessment at this time.
[2025-02-19] MEDS ORDERED: DEXTROSE 5% 1,000 ML IV SCH (19:45)
--- NOTE | 2025-02-19 19:50 | NUR ---
handoff report received from day shift RN. patient resting in bed with eyes closed, RR 24. patient remains on BIPAP. no distress noted. call light in reach.
--- NOTE | 2025-02-19 20:45 | NUR ---
patient taken off BIPAP and placed on 2L NC, SPO2 98%. patient tolerating well. patient provided with ice chips per request. patient restless in bed. reoriented to lines and tubes as patient pulls at lines. patient provided with warm blanket. bed alarm on and call light in reach.
--- NOTE | 2025-02-19 21:00 | NUR ---
patient assessment complete. patient on 2L NC, tolerating well. patient hutchinson cath intact, draining clear yellow urine. hutchinson care done. patient IV site WNL. patient left femoral central line WNL. IVF infusing per emar. patient remains off levophed gtt, BP stable. patient alert and oriented to self only. patient reoriented, and updated on plan of care. patient noted to be more restless in bed. bed alarm on and call light in reach.
--- NOTE | 2025-02-19 23:15 | NUR ---
PATIENT CONTINUES TO BE RESTLESS IN BED. PATIENT REMAINS CONFUSED. PULLING AT LINES. PATIENT REORIENTED NEEDED. PATIENT HAS BED ALARM ON, DOOR AND CURTAIN REMAIN OPEN FOR PATIENT SAFETY. CALL LIGHT IN REACH.
[2025-02-20] VITALS (15 sets, daily range): BP systolic 94–1035; BP diastolic 61–87
--- NOTE | 2025-02-20 01:12 | NUR ---
PATIENT SITTING UP AWAKE IN BED. PATIENT REMAINS ON 2L NC, TOLERTING WELL. VITAL SIGNS STABLE AT THIS TIME. PATIENT PROVIDED WITH JUICE PER REQUEST. PATIENT HAS NO FURTHER NEEDS AT THIS TIME. BED ALARM ON. CURTAIN AND DOOR REMAIN OPEN FOR PATIENT SAFETY.
--- NOTE | 2025-02-20 03:30 | NUR ---
patient resting in bed with eyes closed, SPO2 98%. no distress noted. patient vital signs stable. patient has no needs at this time. curtain and door remain open for patient safety. call light in reach.
--- NOTE | 2025-02-20 05:18 | NUR ---
LAB IN ROOM FOR MORNING LAB DRAW. PATIENT SITTING UP AWAKE IN BED, NO NEEDS AT THIS TIME. CALL LIGHT IN REACH.
--- NOTE | 2025-02-20 05:38 | NUR ---
CHECKED PT ALARM SOUNDING REGARDING BP CUFF. FIXED, ASKED PT IF SHE WAS WARM SHE SAID NO. WARM BLANKET PROVIDED, O2 NC REAPPLIED, ALTHOUGH STATS ON RA WERE 96%. PT SAID THANK YOU.
--- NOTE | 2025-02-20 05:52 | NUR ---
patient taken off NC and now on room air, SPO2 96%. patient provided with more juice per request. patient vital signs stable. patient has no further needs at this time. call light in reach, bed alarm on. patient door and curtain remain open for patient safety.
[2025-02-20 06:42] LABS: BASOPHILS 0.1 % (0-2); EOSINOPHILS 1.1 % (0-6); HEMATOCRIT 26.6 % (35.0-50.0); LYMPHOCYTES 13.5 % (24-44); MCH 31.1 (27-36); MCHC 33.7 g/dl (30-36); MCV 92.1 fl (81-99); MONOCYTES 7.9 % (0-12); NEUTROPHILS 77.4 % (39-80); PLATELET COUNT 138 K/uL (140-440); RBC 2.89 M/ul (4.3-5.7); RDW 16.5 (10.5-15.0)
[2025-02-20 06:56] LABS: ALBUMIN 2.9 g/dL (3.4-5.0); ALBUMIN/GLOBULIN RATIO 0.97 (1.1-2.4); ANION GAP 11.6 (7-21); BILIRUBIN, TOTAL 0.3 mg/dL (0.2-1.0); BUN/CREATININE RATIO 22.72 (6.0-28.6); CALCIUM 8.1 mg/dL (8.5-10.1); CHOLESTEROL/HDL RATIO 2.4; CREATININE, SERUM 1.1 mg/dL (0.55-1.02); MAGNESIUM 1.8 mg/dL (1.8-2.4); PHOSPHORUS, INORGANIC 2.6 mg/dL (2.5-4.9); POTASSIUM 3.6 mmol/L (3.5-5.1); PROTEIN, TOTAL 5.9 g/dL (6.4-8.2)
--- NOTE | 2025-02-20 07:35 | NUR ---
Spoke with Ale. She cont. to live in [place] with her spouse and her mental disabled brother. She recently discharged from [place] where she was working with PT for her L foot. She states she cannot feel her L foot following two back surgeries. Pt states she drives. They live in a home with 2 steps. Her borther received food stamps. They do not have financial issues and she denies concern for safety. She would like a walker. Pt plans to go home with spouse on dc. Denies needs.
--- NOTE | 2025-02-20 07:45 | NUR ---
REPORT RECEIVED FROM ROTARY FILTER OPERATOR RN. PATIENT RESTING IN BED AWAKE. ASKING ABOUT BREAKFAST. CENTRAL LINE TO RIGHT FEMORAL ASSESSED WITH ROTARY FILTER OPERATOR RN. LIZARRAGA CATHERTER IN PLACE DRAINING YELLOW URINE. BED ALARM ON, CALL LIGHT WITHIN REACH.
--- NOTE | 2025-02-20 08:30 | NUR ---
PATIENT VSS. ALERT AND ORIENTED TO PERSON, PLACE AND TIME. PATIENT STILL CAN NOT RECALL HOW OR WHY SHE CAME TO THE HOSPITAL. PATIENT REPORTS THE LAST THING SHE REMEMBERS IS HER TALKING TO HER. LUNG SOUNDS ARE CTA IN BILATERAL UPPER LOBES AND DIMINISHED IN LOWER LOBES. PATIENT RESPIRATIONS EVEN AND UNLABORED, ON ROOM AIR AT THIS TIME. BP WNL AT THIS TIME. HEART RATE 80'S. DENEIS ANY PAIN OR DISCOMFORT AT THIS TIME. NEURO CHECK UNREMARKABLE. IVF CONTINUE TO INFUSE THROUGH FEMORAL CENTRAL LINE. IV SITE TO LEFT HAND PATENT AND WNL. PATIENT ASSISTED WITH BREAKFAST SET UP. EATING BREAKFAST WITH NO ISSUE OR CONCERNS AT THIS TIME. NO FURTHER NEEDS CALL LIGHT WITHIN REACH.
[2025-02-20] MEDS ORDERED: CEFTRIAXONE SODIUM 2 GM VIAL ONE (08:44)
[2025-02-20] MEDS ORDERED: AZITHROMYCIN 500 MG VIAL ONE (08:44)
[2025-02-20] MEDS ORDERED: ENOXAPARIN SODIUM 40 MG/0.4 ML SYR SUB-Q SCH (09:00)
[2025-02-20] MEDS ORDERED: AZITHROMYCIN 500 MG in DEXTROSE 5% 250 ML IV SCH (09:00)
[2025-02-20] MEDS ORDERED: CEFTRIAXONE SODIUM 2 GM in SODIUM CHLORIDE 0.9% 100 ML IV SCH (09:00)
--- NOTE | 2025-02-20 09:15 | NUR ---
IV ABX ADMINSTERED. PATIENT RESTING IN BED CONTINUES TO REMAIN A/O X 3. DENIES ANY FURTHER NEEDS. ECHO IN ROOM WITH PATIENT AT THIS TIME.
--- NOTE | 2025-02-20 10:03 | NUR ---
UR CLINICAL REVIEW: 2 [place] MARTHA, MEETS INPT FOR ALTERED MENTAL STATUS, SEPTIC SHOCK, ACUTE HYPOXIC RESPIRATORY FAILURE, PNUEMONIA. REQUIRING BIPAP, LEVOPHED DRIP, IV ANTIBIOTICS, FURTHER TESTING, LABS, ECHO, MRI PAST OBSERVATION PERIOD. MEDICARE INPT 02/19/25 @ 1258 ORDER MATCHES REG NO AUTH REQUIRED PER MEDICARE RULES PLAN TO DC TO HOME WHEN MEDICALLY STABLE.
--- NOTE | 2025-02-20 10:53 | NUR ---
PATIENT REQUESTING TEA. HOT TEA GIVEN. ASSISTED PATIENT WITH ORIENTATION TO USING THE REMOTE FOR TV. NO FURTHER NEEDS. PHYSICAL THERAPY IN WITH PATIENT AT THIS TIME.
--- NOTE | 2025-02-20 11:39 | NUR ---
REPORT FROM PHYSICAL THERAPY PATIENT IS NON WEIGHT BEARING AT THIS TIME. MATTY LIFT FOR TRANSFER. PATIENT REPORTS PAIN IN HER LLE 5/10 PAIN. PATIENT DECLINED FIRST OFFER FOR TYLENOL PRN AND REPORTED TO THIS RN THAT SHE HAS BEEN TAKING THE BUPRENORPHINE FOR THIS LLE PAIN. PATIENT REPORTS SHE HAS BEEN TO HER PRIMARY CARE PROVIDER FOR THIS LLE PAIN IN THE PAST. RN EDUCATED PATIENT ON CONCERNS OF NEUROLOGICAL DYSFUNCTION IN REGUARDS TO RECENT DECLINE IN COGNITION AND BP'S. PATIENT AGREEDED TO TRY TYLENOL FOR PAIN AT THIS TIME.
[2025-02-20] MEDS ORDERED: PHARMACY RENAL DOSE ADJUSTMENT 1 DOSE MISC PO SCH (12:00)
--- NOTE | 2025-02-20 12:25 | NUR ---
MRI ON UNIT TO TAKE PATIENT TO IMAGING. PRN ADMINSTERED. LIZARRAGA EMPTIED, I'S AND O'S DOCUMENTED.
--- NOTE | 2025-02-20 12:36 | NUR ---
CALL PLACED TO PATIENT PRIMARY CARE PROVIDER TO HAVE RECORDS FAXED FAXED TO [facility].
--- NOTE | 2025-02-20 13:19 | NUR ---
REPORT GIVEN TO SEBASTIAN BHATTI ON MED SURG UNIT. PATIENT TRANSFERED VIA BED.
--- NOTE | 2025-02-20 13:20 | NUR ---
RECIEVED BEDSIDE REPORT FROM [facility], CALL CENTER SUPERVISOR. PT ARRIVED TO FLOOR VIA BED. PT IS RESTING IN BED WITH NO O2 IN PLACE. IVF RESTARTED PER ORDER. PT IS A&O X3, NO DISTRESS AT THIS TIME. PT AND RN REPORT SHE IS AT BASELINE. O2 IS NOT NEEDED AT THIS TIME. IVF IN ONE LUMEN OF FEMORAL CENTRAL LINE. 2 LUMENS FLUSH, BUT DO NOT RETURN BLOOD. 18G IN L HAND WORKS, BUT IS NOT IN USE. ATE BREAKFAST AND LUNCH. LAST BM 02/17, BT ACTIVE. LIZARRAGA IN PLACE.
--- NOTE | 2025-02-20 13:52 | NUR ---
PATIENT IS IN BED AT THIS TIME, NET LEAD ARCHITECT CHARTED VITALS AND GOT FRESH WATER FOR THE PATIENT.
[2025-02-20] MEDS ORDERED: oxyBUTYnin chloride 5 MG TAB PO SCH (15:07)
[2025-02-20] MEDS ORDERED: PANTOPRAZOLE SODIUM 40 MG TABEC PO SCH (15:08)
[2025-02-20] MEDS ORDERED: LEVOTHYROXINE SODIUM 50 MCG TAB PO SCH (15:30)
[2025-02-20] MEDS ORDERED: ROPINIROLE HCL 0.25 MG TAB PO SCH (17:00)
--- NOTE | 2025-02-20 17:38 | NUR ---
CCU TRANSFER TO FLOOR. HISTORY OF ETOH USE, RA, ABUNDIO, HYPERLIDIDEMIA, HYPERTENSION. SURGICAL HISTORY OF "STOMACH STAPLE", HYSTERECTOMY, AND BACK FUSION. ADMITTED TO CCU ON 02/19/25 AFTER BEING FOUND UNRESPONSIVE AT HOME BY HER . WHEN FOUND, SHE DID NOT HAVE HER CPAP ON. IN [facility], SHE SPENT 2 WEEKS AT [facility] FOR LIVER AND KIDNEY FAILURE, THEN 2 WEEKS IN REHAB, AND HAS BEEN HOME ABOUT 2 WEEKS. SHE IS NOW BACK AT BASELINE, STATING IN THE HIGH 90S ON ROOM AIR. IMAGING SHOWED LOW LUNG VOLUME AND ATELECTASIS. LUNGS CTAB. BT ACTIVE. PT REPORTS BM YESTERDAY. IV IN HAND, FLUSHES WELL. HAS TRIPLE LUMEN FEMORAL LINE. BLUE AND BROWN LUMENS DO NOT DRAW BACK BLOOD, BUT FLUSH WELL. WHITE LUMEN DRAWS BLOOD AND FLUSHES. DC IVF, LONG PT IS EATING AND DRINKING. HOME CPAP BROUGHT IN AND CLEARED BY RT. PT REPORTS SEVERE LEFT LEG/FOOT PAIN, UNKNOWN ETIOLOGY. HAS BEEN SEEN AT PAIN CLINIC AND PCP. DRUG SCREEN ON ADMIT SHOWED BUPRENORPHINE, WHICH SHE HAS A SCRIPT FOR. ORDERED 650MG TYLENOL WHILE ADMITED. LAST DOSE GIVEN AT 1809. PT DECLINED PT/OT TODAY DUE TO FOOT PAIN, HAS NOT BEEN OUT OF BED SINCE TRANSFER TO THE FLOOR. RN NOTICED MEMORY LAPSE ABOUT 1814. RN WAS IN ROOM WHEN PT ASKED HER TO STAY IN ROOM. PT THEN FORGOT WHY SHE WANTED THE RN TO STAY, SAYING THAT 3 KIDS WERE MAULED IN [place] WHILE HUNTING, WHICH HAD NO BEARING ON THE CURRENT SITUATION. HER CAME OUT AND ASKED ABOUT IT. NOTIFIED. PT HAS LIZARRAGA, NOT CHRONIC, DRAINING PALE YELLOW URINE.
--- NOTE | 2025-02-20 17:58 | NUR ---
medications reconciled
--- NOTE | 2025-02-20 19:25 | NUR ---
UPDATED DR SORIANO ABOUT PT'D MEDICATION REQUEST. HE DID NOT GIVE ANY NEW ORDERS AND WILL GO TALK TO HER. SHE CALLED THE RN STATION AND REQUESTED TO SPEAK WITH THE DURABLE MEDICAL EQUIPMENT TECHNICIAN. SEBASTIAN HOLLINGSWORTH WILL TALK TO HER.
--- NOTE | 2025-02-20 19:48 | NUR ---
REPORT RECEIVED FROM DAY SHIFT RN. PATIENT RESTING IN BED WITH AT BEDSIDE. DENIES NEEDS AT THIS TIME. CALL LIGHT IN REACH.
--- NOTE | 2025-02-20 20:22 | NUR ---
SHEET METAL SHOP SUPERVISOR OBTAINED VITALS AND I&O. LIZARRAGA EMPTIED. ICE WATER REFILLED. AND PT REQUESTING PAIN MEDS. RN NOTIFED. PT STATES NO FURTHER NEEDS AT THIS TIME. CALL LIGHT WITHIN REACH.
--- NOTE | 2025-02-20 20:50 | NUR ---
CALL LIGHT ANSWERED. PATIENT REQUESTING PAIN MEDICATION. SCHEDULED MEDICATION ADMINISTERED. HOT PACK PROVIDED FOR PAIN. LLE ELEVATED ON PILLOW. PATIENT DENIES FURTHER NEEDS AT THIS TIME. CALL LIGHT IN REACH. BED ALARM ON.
[2025-02-20] MEDS ORDERED: PREGABALIN 100 MG CAP PO SCH (21:00)
[2025-02-20] MEDS ORDERED: APIXABAN 2.5 MG TAB PO SCH (21:00)
[2025-02-20] MEDS ORDERED: AMIODARONE HCL 200 MG TAB PO SCH (21:00)
--- NOTE | 2025-02-20 22:31 | EKG ---
[facility] [address] [place] [address] Signed Normal sinus rhythm Normal ECG When compared with ECG of 12-JAN-2025 12:40, Sinus rhythm has replaced Junctional rhythm Questionable change in QRS duration Confirmed by Daksha Soriano MD () on 02/20/2025 10:31:33 PM Electronically Signed By: DAKSHA SORIANO MD 02/20/252230 PATIENT NAME: ALEJANDRANIRU LAINE Electrocardiogram DATE OF : 56 PHYSICIAN: DAKSHA SORIANO MD REPORT #: [id number] REPORT IS CONFIDENTIAL AND NOT TO BE RELEASED WITHOUT AUTHORIZATION
--- NOTE | 2025-02-20 23:34 | NUR ---
CALL LIGHT ANSWERED. PATIENT REQUESTING TO SIT IN CHAIR. PATIENT UP TO CHAIR USING 2P SBA. CHAIR ALARM ON. NO FURTHER NEEDS. CALL LIGHT IN REACH.
--- NOTE | 2025-02-21 00:20 | NUR ---
CALL LIGHT ANSWERED. PATIENT REQUESTING TO GO BACK TO BED. PATIENT BACK TO BED USING 2P SBA AND FWW. PATIENT BLE ELEVATED. BED ALARM ON. CALL LIGHT IN REACH.
--- NOTE | 2025-02-21 00:58 | NUR ---
CALL LIGHT ANSWERED. PATIENT REQUESTING MEDICATION. PRN PAIN MEDICATION ADMINISTERED. NO FURTHER NEEDS. CALL LIGHT IN REACH.
--- NOTE | 2025-02-21 03:16 | NUR ---
CALL LIGHT ANSWERED. PATIENT STATES "CAN I HAVE PAIN MEDICATION?". THIS RN EDUCATED PATIENT THAT SHE DOES NOT HAVE ANY PAIN MEDICATION AVAILABLE AT THIS TIME. PATIENT STATES "THE DOCTOR DID NOT ORDER MY 3 AM MEDICATION? I AM LEAVING IN THE MORNING". THIS RN EDUCATED PATIENT THE DOCTORS REASONING BEHIND NOT ORDERING HER MEDICATION. THIS RN OFFERED PATIENT A WARM OR COLD PACK, AND REPOSITIONING. PATIENT DECLINED. PATIENT HAS NO FURTHER NEEDS AT THIS TIME. CALL LIGHT IN REACH.
[2025-02-21 04:50] VITALS: BP 137/79
--- NOTE | 2025-02-21 04:53 | NUR ---
CALL LIGHT ANSWERED. PT NEEDED TO HAVE B,. SKILL LABOR AND SEBASTIAN FOX 2PA TO BSC. PT HAD LARGE BM. PT ASSISTED BACK TO BED. VITALS AND I&O OBTAINED AND DOCUMENTED. LIZARRAGA BAG EMPTIED. PT GIVEN ORANGE JUICE UPON REQUEST. PT STATES NO FURTHER NEEDS AT THIS TIME. CALL LIGHT WITHIN REACH AND BED ALARM ON.
[2025-02-21 05:55] LABS: BASOPHILS 0.2 % (0-2); EOSINOPHILS 0.4 % (0-6); HEMATOCRIT 28.1 % (35.0-50.0); HEMOGLOBIN 9.6 g/dL (12.0-18.0); LYMPHOCYTES 18.7 % (24-44); MCH 31.1 (27-36); MCHC 34.3 g/dl (30-36); MCV 90.8 fl (81-99); MONOCYTES 7.5 % (0-12); NEUTROPHILS 73.2 % (39-80); PLATELET COUNT 141 K/uL (140-440); RDW 16.7 (10.5-15.0)
[2025-02-21 06:09] LABS: ALBUMIN 2.9 g/dL (3.4-5.0); ALBUMIN/GLOBULIN RATIO 0.91 (1.1-2.4); ANION GAP 12.7 (7-21); BILIRUBIN, TOTAL 0.4 mg/dL (0.2-1.0); BUN/CREATININE RATIO 10.48 (6.0-28.6); CALCIUM 8.5 mg/dL (8.5-10.1); CREATININE, SERUM 1.24 mg/dL (0.55-1.02); POTASSIUM 3.7 mmol/L (3.5-5.1); PROTEIN, TOTAL 6.1 g/dL (6.4-8.2)
--- NOTE | 2025-02-21 07:15 | NUR ---
RECIEVED BEDSIDE REPORT FROM SEBASTIAN REHMAN. PT IS RESTING COMFORTABLY AT THIS TIME. BREATHING IS EVEN AND UNLABORED.
[2025-02-21] MEDS ORDERED: SODIUM CHLORIDE 0.9% 1,000 ML IV SCH (08:00)
--- NOTE | 2025-02-21 08:30 | NUR ---
GAVE PATIENT A WASH CLOTH PATIENT WASHED HER FACE AND MOUTH WASH SHE DID ORAL CARE. TWO WARM BLANKETS AND FRESH ICE WATER.
[2025-02-21] MEDS ORDERED: AZITHROMYCIN 500 MG VIAL ONE (09:02)
[2025-02-21] MEDS ORDERED: CEFTRIAXONE SODIUM 2 GM VIAL ONE ×2 (09:02→09:03)
--- NOTE | 2025-02-21 09:04 | NUR ---
CALL LIGHT ANSWERED. PT REQ PAIN MED. RN NOTIFIED.
--- NOTE | 2025-02-21 09:20 | NUR ---
Spoke with Ale. She is mentally clearer today. She let me know where she was yesterday. She is asking when she can go home. I reminded her she came in in Septic Shock and pneumonia. She states she has no memory or arriving and was not aware of her diagnosis. She cont. to complain of a painful foot. She states she was seeing Dr. Barrios for a wart on her foot. Denies needs at this time.
[2025-02-21 09:25] VITALS: BP 134/74
--- NOTE | 2025-02-21 11:02 | NUR ---
VISITED DURING SPIRITUAL CARE ROUNDS. PT RECEIVED PHONE CALL AND ASKED IF I COULD RETURN LATER. WILL RETURN CIRCUMSTANCES ALLOW.
--- NOTE | 2025-02-21 11:53 | NUR ---
REMOVED FEMORAL LINE PER ORDER. HELD PRESSURE, COVERED WITH OCLUSIVE DRESSING AND GAUZE, COVERED WITH TEGADERM. PT TOLERATED PROCEDURE WELL, 2 SUTURES REMOVED INTACT. PT RESTING COMFORTABLY IN BED.
[2025-02-21] MEDS ORDERED: ATORVASTATIN 40 MG TAB PO SCH (12:28)
[2025-02-21] MEDS ORDERED: buprenorphine HCL 2 MG TAB.SUBL SL SCH (12:30)
[2025-02-21 13:27] VITALS: BP 117/69
--- NOTE | 2025-02-21 13:30 | NUR ---
PT REFUSED FULL DOSE OF BUPRENORPHINE, SHE ONLY WANTED ONE MG. TABLET WAS CUT AND 1MG WASTED WITH POP FLORENTINO RN FROM CCU.
--- NOTE | 2025-02-21 13:30 | NUR ---
PATIENT WAS IN HER BED AT THIS TIME AND NEEDED ASSISTANCE TO THE RESTROOM AND BACK TO BED. FIELD OPERATIONS SUPERVISOR CHARTED VITALS AND I &O'S, CALL LIGHT WITH IN REACH AND NOTHING ELSE NEEDED AT THIS TIME.
--- NOTE | 2025-02-21 14:02 | NUR ---
CALL LIGHT ANSWERED. PT REQ SNACK. SNACK PROVIDED. BED ALARM SET. PT DENIES FURTHER NEEDS, CALL LIGHT IN REACH
--- NOTE | 2025-02-21 17:32 | NUR ---
Update from PT. Recommending SNF and a walker.
[2025-02-21 17:38] VITALS: BP 110/58
--- NOTE | 2025-02-21 19:05 | NUR ---
REPORT REC'D FROM SEBASTIAN BHATTI. PT RESTING IN BED WITHOUT C/O AT THIS TIME. CALL TIJERINA IN REACH, BED IN LOW POSITION AND LOCKED.
[2025-02-21] MEDS ORDERED: diphenhydrAMINE HCL 25 MG CAP PO ONE (19:45)
--- NOTE | 2025-02-21 19:45 | NUR ---
PT REPORTS FEELING ITCHY FROM "[facility]" AND IS REQUESTING BENADRYL. DR. TEJADA NOTIFIED, ORDERS REC'D.
[2025-02-21 20:04] VITALS: BP 126/74
--- NOTE | 2025-02-21 20:10 | NUR ---
BED ALARM ANSWERED. PT SITTING AT EDGE OF BED STATING THE NEED TO USE BATHROOM. JUMP IRON MACHINE PRESSER 1PA WITH FWW TO BATHROOM. PT VOIDED AND ASSISTED BACK TO BED. VITALS AND I&O OBTAINED AND DOCUMENTED. PT STATES NO FURTHER NEEDS AT THIS TIME. CALL LIGHT WITHIN REACH AND BED ALARM ON.
[2025-02-21 22:40] VITALS: BP 107/65
--- NOTE | 2025-02-21 23:26 | NUR ---
PT SITTING UP IN BED, PROVIDED PM SNACK. PT WITHOUT ADDITIONAL C/O. CALL TIJERINA IN REACH, BED LOW POSITION, SIDERAILS UP X2.
[2025-02-21 23:49] LABS: THYROXINE FREE 1.6 ng/dL (0.9-1.7)
--- NOTE | 2025-02-22 00:19 | NUR ---
PT SITTING ON SIDE OF BED WITHOUT C/O. CARE FOR T/O SHIFT WITHOUT INCIDENT. CALL TIJERINA IN REACH, BED LOW POSITION AND LOCKED, SIDERAILS UP X2
--- NOTE | 2025-02-22 01:38 | NUR ---
Got report from security shift supervisor nurse. Patient requesting pain medication for her back. Pt was just given tylenol about 30 minutes ago. Pt given warm pack to area. String cheese also given. Pt denies any other cares at this time. Bed in low position, call light within reach. Pt watching TV. CPAP at bedside but not on patient.
--- NOTE | 2025-02-22 02:48 | NUR ---
PATIENT ASKING WHEN SHE HAD HER SUBOXONE. THIS NURSE ADVISED HER AROUND 900PM SHE WAS GIVEN IT. PATIENT THEN STATES, "OK SO I SHOULD BE ABLE TO HAVE IT AGAIN THEN" THIS NURSE ADVISED PATIENT THAT ITS SCHEDULED BID. THIS NURSE THEN ASKED PATIENT HOW SHE TAKES IT AT HOME."OH I TAKE IT MORNING AND NIGHT". PT ADVISED THATS HOW WE HAVE IT HERE WELL. PATIENT IS NOT ABLE TO HAVE TYLENOL UNTIL 0500. BOTH FEET ELEVATED WITH PILLOW THAT IS WHATS CAUSING HER PAIN.
[2025-02-22 04:56] VITALS: BP 146/81
--- NOTE | 2025-02-22 05:01 | NUR ---
BED ALARM ANSWERED. PT AT EDGE OF BED STATING SHE NEEDED TO USE BATHROOM. FRONT END ARCHITECT 1PA WITH FWW TO BATHROOM. PT VOIDED AND ASSISTED BACK TO BED. FRONT END ARCHITECT OBTAINED VITALS AND I&O. PT STATES NO FURTHER NEEDS AT THIS TIME. CALL LIGHT WITHIN REACH, BED ALARM ON, LAB IN ROOM.
[2025-02-22 05:40] LABS: BASOPHILS 0.3 % (0-2); EOSINOPHILS 0.2 % (0-6); HEMATOCRIT 29.9 % (35.0-50.0); HEMOGLOBIN 10.2 g/dL (12.0-18.0); LYMPHOCYTES 16.6 % (24-44); MCH 31.1 (27-36); MCHC 34.2 g/dl (30-36); NEUTROPHILS 75.9 % (39-80); PLATELET COUNT 151 K/uL (140-440); RBC 3.28 M/ul (4.3-5.7); RDW 17.1 (10.5-15.0)
[2025-02-22 05:57] LABS: ALBUMIN 3.5 g/dL (3.4-5.0); ANION GAP 9.2 (7-21); BILIRUBIN, TOTAL 0.2 mg/dL (0.2-1.0); BUN/CREATININE RATIO 17.64 (6.0-28.6); CALCIUM 8.8 mg/dL (8.5-10.1); CREATININE, SERUM 0.85 mg/dL (0.55-1.02); POTASSIUM 4.2 mmol/L (3.5-5.1)
--- NOTE | 2025-02-22 06:45 | NUR ---
PATIENT UP SITTING ON THE SIDE OF THE BED, DENIES ANY CARES AT THIS TIME. PATIENT PLAYING ON HER PHONE.
--- NOTE | 2025-02-22 07:32 | NUR ---
RECIEVED BEDSIDE REPORT FROM SEBASTIAN FOX. PT IS SITTING ON THE EDGE OF THE BED. REPORTS SHE IS READY TO GO HOME. NO NEEDS AT THIS TIME.
[2025-02-22] MEDS ORDERED: CEFTRIAXONE SODIUM 2 GM VIAL ONE (07:57)
--- NOTE | 2025-02-22 08:29 | NUR ---
PT REQUESTED ONLY 1MG BUPUNORPHINE. TAB SPLIT AND HALF GIVEN. HALF TAB WASTED WITH SEBASTIAN ARMANDO.
[2025-02-22 09:49] VITALS: BP 125/75
--- NOTE | 2025-02-22 10:05 | NUR ---
IV SALINE LOCKED AT THIS TIME, IV ABX COMPLETE. PT WORKING WITH PATIENT AT THIS TIME. DENIES ANY FURTHER NEEDS.
[2025-02-22] MEDS ORDERED: CEFUROXIME500 MG PO (10:14)
--- NOTE | 2025-02-22 10:35 | NUR ---
PHYSICAL THERAPY CAME TO [facility]VISE PT WAS CONFUSED AND HYPOTENSIVE DURING THERAPY WITH STANDING BP OF 86/60. AFTER RESTING, HER BP WAS 96/68. ENCOURAGED TO DRINK WATER AND REST BEFORE HER SHOWER. AFTER REFILLING HER WATER, I RETURNED TO THE ROOM AND PATIENT WAS ATTEMPTING TO DRINK OUT OF A SMALL BOTTLE FROM HER BAG. WHEN ASKED ABOUT WHAT IT WAS, PT LOOKED STARTLED AND LOOKED AT THE BOTTLE OF LOTION AND STATED SHE DIDN'T WANT TO DRINK THAT SHE WAS LOOKING FOR SOMETHING FOR HER LEGS. ADVISED MD, WHO ASSESSED HER. SHE IS ALERT AND ORIENTED, SAID SHE DIDN'T HAVE HER GLASSES ON.
--- NOTE | 2025-02-22 12:46 | NUR ---
VENUE COORDINATOR ADVISED PT PULLED HER IV WHILE GETTING DRESSED AFTER HER SHOWER. IV SITE WAS BLEEDING PROFUSELY. IV REMOVED, AREA CLEANED, PRESSURE HELD WITH GAUZE, AND SECURED. BLEEDING STOPPED. PT DID NOT RECIEVE HER NOON DOSE OF SOLU-MEDROL DUE TO THE IV BEING COMPROMISED. PT IS DISCHARGING WHEN HER GETS HERE.
--- NOTE | 2025-02-22 12:48 | NUR ---
PT DISCHARGE TEACHING COMPLETE. DISCUSSED NEW MEDICATIONS, FOLLOW-UP SCHEDULED, AND DIAGNOSIS. ALL QUESTIONS ANSWERED. SHE WILL CALL HER TO SEE IF HE CAN PICK HER UP OR SHE WILL NEED A CARE RIDE.
[2025-02-22 12:58] VITALS: BP 105/61
--- NOTE | 2025-02-22 13:06 | NUR ---
PATIENT WAS IN HER BED AT THIS TIME FREEZER LABORATORY TECHNICIAN ASSITED IN A SHOWER AND GETTING HER READY TO GO HOME.
== END 2025-02-22 13:12 | disposition home or self-care (01) | DRG 871 ==
LOC: ED 08:21 → CCU 13:01 → MS 02-20 13:00
PROVIDERS: Emergency Medicine; ADMIT Family Medicine; ATTEND Family Medicine
PROC: 3E03329 Introduction of Other Anti-infective into Peripheral Vein, Percutaneous Approach (ICD-10-PCS; principal; 2025-02-19)
PROC: 06HY33Z Insertion of Infusion Device into Lower Vein, Percutaneous Approach (ICD-10-PCS; 2025-02-19)
PROC: 3E033XZ Introduction of Vasopressor into Peripheral Vein, Percutaneous Approach (ICD-10-PCS; 2025-02-19)
PROC: 4A033R1 Measurement of Arterial Saturation, Peripheral, Percutaneous Approach (ICD-10-PCS; 2025-02-19)
PROC: 5A09357 Assistance with Respiratory Ventilation, Less than 24 Consecutive Hours, Continuous Positive Airway Pressure (ICD-10-PCS; 2025-02-20)
DX: A41.9 Sepsis, unspecified organism (principal); J18.9 Pneumonia, unspecified organism; J96.01 Acute respiratory failure with hypoxia; R65.21 Severe sepsis with septic shock; N17.9 Acute kidney failure, unspecified; G93.49 Other encephalopathy; E87.20 Acidosis, unspecified; M06.9 Rheumatoid arthritis, unspecified; I12.9 Hypertensive chronic kidney disease with stage 1 through stage 4 chronic kidney disease, or unspecified chronic kidney disease; N18.9 Chronic kidney disease, unspecified; E87.5 Hyperkalemia; I65.21 Occlusion and stenosis of right carotid artery; M79.672 Pain in left foot; Z88.1 Allergy status to other antibiotic agents; Z88.5 Allergy status to narcotic agent; G47.00 Insomnia, unspecified; G25.81 Restless legs syndrome; E03.9 Hypothyroidism, unspecified; M21.372 Foot drop, left foot; F32.A Depression, unspecified; F41.9 Anxiety disorder, unspecified; E78.00 Pure hypercholesterolemia, unspecified; Z90.49 Acquired absence of other specified parts of digestive tract; Z90.710 Acquired absence of both cervix and uterus; Z98.1 Arthrodesis status; Z98.890 Other specified postprocedural states; Z88.8 Allergy status to other drugs, medicaments and biological substances; Z79.01 Long term (current) use of anticoagulants; Z79.899 Other long term (current) drug therapy; Z79.890 Hormone replacement therapy; Z99.81 Dependence on supplemental oxygen
CPT/HCPCS: 36415; 36556; 51702; 70450; 70551; 71045; 73630; 80048; 80053; 80061; 80307; 81001; 82140; 82803; 83036; 83605; 83735; 83880; 84100; 84439; 84443; 85025; 85610; 85730; 87040; 87502; 93005; 93010; 93306; 93880; 94660; 94760; 96368; 97110; 97162; 97166; 97530; 99285-25; A9270; G0480; J0456; J0696; J1650; J1720; J2310; J7030; J7060; J7070; U0002

== ENCOUNTER 2025-03-05 18:39 | Inpatient (IN) | payer MEDICARE ==
[~2025-03-05] VITALS: Ht 170.2 cm; Wt 73.2 kg
[~2025-03-05 18:39] MED LIST changes: +AMIODARONE HCL200 MG PO; +AMLODIPINE BESYL5 MG PO; +ATORVASTATIN CA40 MG PO; +BUPRENO-NALOX1 EACH PO; +CEFUROXIME500 MG PO; +ELIQUIS2.5 MG PO; +PREGABALIN100 MG PO
--- OUTSIDE RECORDS SUMMARY | 2025-03-05 18:46 | XMS ---
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 Silver VISIT COUNT (12 MO.) [address] [place], [place] [address]Adilia TOTAL 6 NOTE: Visits indicate total known visits. ED/C VISIT TRACKING (12 MO.) 03/05/2025 18:40 [facility] TYPE: Emergency COMPLAINT: - ALTERED MENTAL STATUS 02/19/2025 08:22 [facility] TYPE: Emergency COMPLAINT: - STROKE SYMPTOMS 01/12/2025 14:45 [facility] TYPE: Emergency DIAGNOSES: - Elevation of levels of liver transaminase levels - Non-ST elevation (NSTEMI) myocardial infarction - Other specified abnormal findings of blood chemistry - Sepsis, unspecified organism - Severe sepsis with septic shock - Evaluation Of Abnormal Ekg 01/12/2025 12:40 [facility] TYPE: Emergency COMPLAINT: - CHEST PAIN DIAGNOSES: - Allergy status to narcotic agent - Allergy status to other antibiotic agents - Chest pain, unspecified - Essential (primary) hypertension - Hormone replacement therapy - Hyperkalemia - Hypothyroidism, unspecified - Other termite exterminator helper (current) drug therapy - ST elevation (STEMI) myocardial infarction involving other coronary artery of anterior wall 09/12/2024 06:34 [facility] TYPE: Emergency COMPLAINT: - FALL DIAGNOSES: - Allergy status to narcotic agent - Allergy status to other antibiotic agents - Disorder of kidney and ureter, unspecified - Essential (primary) hypertension - History of falling - Hormone replacement therapy - Hypothyroidism, unspecified - Other half-way (current) drug therapy - Pure hypercholesterolemia, unspecified - Restless legs syndrome - Rheumatoid arthritis, unspecified - Sleep apnea, unspecified - Unspecified fall, initial encounter - Unspecified injury of head, initial encounter 08/30/2024 01:46 [facility] TYPE: Emergency COMPLAINT: - POSS OD DIAGNOSES: - Allergy status to narcotic agent - Allergy status to other antibiotic agents - Altered mental status, unspecified - Essential (primary) hypertension - Hormone replacement therapy - Hypothyroidism, unspecified - Other half-way (current) drug therapy - Pure hypercholesterolemia, unspecified - Restless legs syndrome - Rheumatoid arthritis, unspecified INPATIENT VISIT TRACKING (12 MO.) 02/19/2025 13:01 [facility] TYPE: Medical Surgical COMPLAINT: - SEPTIC SHOCK, PNEUMONIA DIAGNOSES: - Acidosis, unspecified - Acquired absence of both cervix and uterus - Acquired absence of both cervix and uterus - Acquired absence of other specified parts of digestive tract - Acquired absence of other specified parts of digestive tract - Acute kidney failure, unspecified - Acute kidney failure, unspecified - Acute respiratory failure with hypoxia - Acute respiratory failure with hypoxia - Allergy status to narcotic agent - Allergy status to narcotic agent - Allergy status to other antibiotic agents - Allergy status to other antibiotic agents - Allergy status to other drugs, medicaments and biological substances - Allergy status to other drugs, medicaments and biological substances - Anxiety disorder, unspecified - Anxiety disorder, unspecified - Arthrodesis status - Arthrodesis status - Chronic kidney disease, unspecified - Chronic kidney disease, unspecified - Dependence on supplemental oxygen - Depression, unspecified - Depression, unspecified - Foot drop, left foot - Hormone replacement therapy - Hormone replacement therapy - Hyperkalemia - Hyperkalemia - Hypertensive chronic kidney disease with stage 1 through stage 4 chronic kidney disease, or unspecified chronic kidney disease - Hypertensive chronic kidney disease with stage 1 through stage 4 chronic kidney disease, or unspecified chronic kidney disease - Hypothyroidism, unspecified - Hypothyroidism, unspecified - Insomnia, unspecified - Insomnia, unspecified - extermination inspector (current) use of anticoagulants - MCC (current) use of anticoagulants - Occlusion and stenosis of right carotid artery - Occlusion and stenosis of right carotid artery - Orthostatic hypotension - Other encephalopathy - Other encephalopathy - Other termite exterminator helper (current) drug therapy - Other termite exterminator helper (current) drug therapy - Other specified postprocedural states - Other specified postprocedural states - Pain in left foot - Pain in left foot - Pneumonia, unspecified organism - Pneumonia, unspecified organism - Pure hypercholesterolemia, unspecified - Pure hypercholesterolemia, unspecified - Restless legs syndrome - Restless legs syndrome - Rheumatoid arthritis, unspecified - Rheumatoid arthritis, unspecified - Sepsis, unspecified organism - Severe sepsis with septic shock - Severe sepsis with septic shock 01/12/2025 14:45 [facility] TYPE: Internal Medicine DIAGNOSES: - Acute and subacute hepatic failure without coma - Acute kidney failure, unspecified - Alcohol abuse, uncomplicated - Anemia, unspecified - Arthrodesis status - Edema, unspecified - Elevation of levels of liver transaminase levels - Essential (primary) hypertension - Metabolic encephalopathy - Non-ST elevation (NSTEMI) myocardial infarction - Opioid dependence, uncomplicated - Other disorders of phosphorus metabolism - Rhabdomyolysis - Sepsis, unspecified organism - Severe sepsis with septic shock [email or web address]
[2025-03-05] MEDS ORDERED: IBLOOD GLUCOSE TEST STRIP 1 EA TEST VI ONE (20:45)
[2025-03-05 21:43] LABS: BASOPHILS 0.2 % (0-2); EOSINOPHILS 0.1 % (0-6); HEMATOCRIT 37.9 % (35.0-50.0); HEMOGLOBIN 12.9 g/dL (12.0-18.0); LYMPHOCYTES 7.3 % (24-44); MCH 31.1 (27-36); MCHC 33.9 g/dl (30-36); MCV 91.8 fl (81-99); MONOCYTES 7.3 % (0-12); NEUTROPHILS 85.1 % (39-80); PLATELET COUNT 183 K/uL (140-440); RBC 4.13 M/ul (4.3-5.7); RDW 16.5 (10.5-15.0)
[2025-03-05 22:00] LABS: ALBUMIN 3.7 g/dL (3.4-5.0); ALCOHOL, MEDICAL <3 ng/dL (<3); ALKALINE PHOSPHATASE 82 U/L (46-116); ALT (SGPT) 28 U/L (14-59); ANION GAP 14.1 (7-21); AST (SGOT) 28 U/L (15-37); BILIRUBIN, TOTAL 0.8 mg/dL (0.2-1.0); BUN/CREATININE RATIO 14.95 (6.0-28.6); CALCIUM 9.4 mg/dL (8.5-10.1); CARBON DIOXIDE 29 mmol/L (21-32); CHLORIDE 101 mmol/L (98-107); CREATININE, SERUM 1.07 mg/dL (0.55-1.02); GLOMERULAR FILTRATION RATE,EST 57 mL/min (>60); POTASSIUM 4.1 mmol/L (3.5-5.1); PROTEIN, TOTAL 8.3 g/dL (6.4-8.2); UREA NITROGEN 16 mg/dL (7-18)
[2025-03-05 22:10] LABS: BILIRUBIN, URINE NEGATIVE (negative); BLOOD/HGB, URINE NEGATIVE (Negative); KETONE, URINE TRACE (Negative); LEUK ESTERASE, URINE NEGATIVE (negative); NITRITE, URINE NEGATIVE (negative)
[2025-03-05 22:24] LABS: AMPHETAMINES, URINE NEGATIVE (NEGATIVE); BARBITURATES, URINE NEGATIVE (NEGATIVE); BENZODIAZEPINE, URINE NEGATIVE (NEGATIVE); BUPRENORPHINE, URINE POSITIVE (NEGATIVE); CANNABINOID, URINE NEGATIVE (NEGATIVE); COCAINE, URINE NEGATIVE (NEGATIVE); ECSTASY, URINE NEGATIVE (NEGATIVE); FENTANYL, URINE NEGATIVE (NEGATIVE); METHADONE, URINE NEGATIVE (NEGATIVE); OPIATES, URINE NEGATIVE (NEGATIVE); OXYCODONE, URINE NEGATIVE (NEGATIVE); PHENCYCLIDINE, URINE NEGATIVE (NEGATIVE)
[2025-03-06] VITALS (9 sets, daily range): BP systolic 135–147; BP diastolic 70–90
[2025-03-06] MEDS ORDERED: LACTATED RINGER'S 1,000 ML IV SCH ×2 (01:15→01:30)
[2025-03-06] MEDS ORDERED: CEFTRIAXONE SODIUM 2 GM in SODIUM CHLORIDE 0.9% 100 ML IV ONE (01:15)
[2025-03-06] MEDS ORDERED: ACETAMINOPHEN 325 MG TAB PO PRN ×2 (01:30→09:30)
[2025-03-06] MEDS ORDERED: AZITHROMYCIN 500 MG in DEXTROSE 5% 250 ML IV ONE (01:30)
[2025-03-06] MEDS ORDERED: ondansetron HCL 4 MG/2 ML VIAL IV PRN ×2 (01:30→09:30)
[2025-03-06 02:15] LABS: LACTIC ACID, BLOOD 0.9 mmol/L (0.4-2.0)
--- NOTE | 2025-03-06 03:01 | NUR ---
PATIENT ARRIVED TO THE UNIT VIA STRETCHER. PATIENT IS ALERT AND RESPONDS TO HER NAME. FULL ASSIST TO MOVE PATIENT TO BED VIS TRANSFER SHEET. PATIENT ASSISTED TO ROLL AND REMOVE EXTRA BEDDING. RED AREA NOTED ON COCCYX; COVERED WITH ALYVEN. PATIENT INCONTINENT OF SMALL AMOUNT OF URINE. ATTENDS CHANGED. PATIENT NOTED TO HAVE BRUSING TO THE LEFT SIDE OF HER FACE, SMALL SCRATCHES ON LEFT FOREARM, AND REDNESS/EDEMA ON LEFT LOWER EXTREMITIES. PATIENT REPORTS PAIN WITH PALPATION. PEDAL PULSE 2+. VS STABLE. IV SITE WNL; IVF AND ABX STARTED PER ORDER. PATIENT HAS NO TEETH; REPORTS HAVING DENTURES AT HOME. PATIENT STATES SHE KNOWS WHERE SHE IS BUT IS UNABLE TO PROVIDE A NAME. PATIENT RESTLESS AT TIMES, MOVING BLANKETS AROUND AND MOANING. STATING "PLEASE, NO". WHEN ASKED PATIENT UNABLE TO VERBALIZE WHAT IS CAUSING HER DISCOMFORT. ATTEMPTS MADE TO MAKE PATIENT COMFORTABLE IN BED. WARM BLANKETS PROVIDED. LIGHTS DIMMED. CALL LIGHT IN REACH. BED ALARM ACTIVE. PATIENT IN CLOSE PROXIMITY TO THE NURSES STATION.
--- NOTE | 2025-03-06 05:00 | NUR ---
PATIENT CONTINUES TO MOAN AND BE RESTLESS. PATIENT DENIES ANY NEEDS OR DOESN'T ANSWER WHEN SPOKEN TO. PATIENT ASSISTED IN REPOSITIONING IN BED. GOWN REPLACED. VS STABLE. ATTENDS IN PLACE. ATTENDS ARE DRY. IV SITE WNL; FLUIDS PER ORDER. CALL LIGHT IN REACH. BED ALARM ACTIVE.
[2025-03-06 05:28] LABS: BASOPHILS 0.1 % (0-2); EOSINOPHILS 0.2 % (0-6); HEMATOCRIT 31.1 % (35.0-50.0); HEMOGLOBIN 10.6 g/dL (12.0-18.0); LYMPHOCYTES 10.7 % (24-44); MCH 31.2 (27-36); MCV 91.7 fl (81-99); MONOCYTES 11.2 % (0-12); NEUTROPHILS 77.8 % (39-80); PLATELET COUNT 150 K/uL (140-440); RBC 3.39 M/ul (4.3-5.7); RDW 16.5 (10.5-15.0)
[2025-03-06 05:46] LABS: ALBUMIN 2.8 g/dL (3.4-5.0); ALBUMIN/GLOBULIN RATIO 0.76 (1.1-2.4); ANION GAP 12.5 (7-21); BILIRUBIN, TOTAL 0.5 mg/dL (0.2-1.0); BUN/CREATININE RATIO 16.49 (6.0-28.6); CALCIUM 8.3 mg/dL (8.5-10.1); CREATININE, SERUM 0.97 mg/dL (0.55-1.02); POTASSIUM 3.5 mmol/L (3.5-5.1); PROTEIN, TOTAL 6.5 g/dL (6.4-8.2)
--- NOTE | 2025-03-06 07:25 | NUR ---
PT IN BED AWAKE, RESTLESS - VISIBLE TO RN AT DESK. MOANING AND TALKING TO SELF. CALL LIGHT IN REACH.
--- NOTE | 2025-03-06 08:12 | NUR ---
PT GIVEN BREAKFAST AFTER VITALS AND ASSESSMENT, PT UNABLE TO TELL ME HER BIRTHDAY, WHERE SHE IS OR WHAT DAY AND TIME IT IS. PT DENIES NEEDS, STARTS TO EAT HER MEAL AND DRINK HER COFFEE. LEFT LEG IS SWOLLEN AND TOES HAVE SCABS WITH RED AREAS NOTED. NEW ORDER TO SL IV. SITE WNL. LUNGS DIM/CLEAR AND BS+, VISIBLE TO RN.
--- NOTE | 2025-03-06 08:56 | NUR ---
DR SORIANO HERE AND UPDATED WITH PT STATUS - PT CONTINUES TO NOT FOLLOW DIRECTIONS AND PULL AT LINES REMOVING THE MONITORS AND DENIES NEEDS - CALL LIGHT IN REACH AND VISIBLE TO RN, RN RE DIRECTS PT FOR SAFETY AND MONITORING.
[2025-03-06] MEDS ORDERED: SODIUM CHLORIDE 0.9% 1,000 ML IV SCH (09:30)
--- NOTE | 2025-03-06 09:58 | NUR ---
NS @125 STARTED IN LEFT ARM- SITE WNL.
--- NOTE | 2025-03-06 10:03 | EKG ---
[facility] [address] [facility] [place] [address] Signed Normal sinus rhythm Normal ECG When compared with ECG of 19-FEB-2025 08:31, No significant change was found Confirmed by Daksha Soriano MD () on 03/06/2025 10:02:51 AM Electronically Signed By: DAKSHA SORIANO MD 03/06/25 1003 PATIENT NAME: NIRU ROBERTS Electrocardiogram DATE OF : 56 PHYSICIAN: DAKSHA SORIANO MD REPORT #: [id number] REPORT IS CONFIDENTIAL AND NOT TO BE RELEASED WITHOUT AUTHORIZATION
--- NOTE | 2025-03-06 10:20 | NUR ---
In and spoke with Ale. 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 Pt smiles and says, "Well, hi." Pt is unable to answer any questions, she does not know who she lives with or where she is living. Pt mumbles words, but does not respond. Pt has a black eye on the L side. I will fu with pt tomorrow.
--- NOTE | 2025-03-06 10:56 | NUR ---
UR CLINICAL REVIEW: 2MN MARTHA, MEETS INPT FOR ACUTE ENCEPHALOPATHY AND PNEUMONIA. IV FLUIDS, IV ANTIBIOTICS, PT/OT EVALUATIONS, LAB MONITORING MEDICARE INPT 03/06/2025 @ 0934 ORDER MATCHES REG NO AUTH REQUIRED PER MEDICARE RULES DC PLAN PENDING FURTHER EVALUATION.
--- NOTE | 2025-03-06 11:22 | NUR ---
PT CONFUSED, PICKING AT THINGS IN THE AIR AND MUMBLING. ASKED PT AND REMINDED TO NOT PULL OFF PULSE OX. SHE IS CONFUSED TO WHERE SHE IS AND WHAT IS GOING ON. ATTEMPTED TO RE ORIENT. PT JUST FINISHED WORKING WITH PT AND OT THERAPY - RESTING IN BED NOW, CALL LIGHT IN REACH AND VISIBLE TO RN.
--- NOTE | 2025-03-06 11:45 | NUR ---
pt trsf to rm 110 report to sharron rn, all pt bedlongings to room. dtg mariela called and would like update from rn after report/trsf. pt continues to be confused, vss, denies c/o, oriented to new staff and new room. 1215: return call to pt dtg mariela. she reports mother has been increasingly confused and having falls. reports that pt does her own meds, and cares and lives with her who is not really sure of her medical history or plan of care. pt was previously in a snf and dtg is concerned that her mental and LOC is declining. dtg. concern that she may need snf again for safety. Daughter reports that mom could be in withdrawl from meds or ETOH or she may be OD acidentally from confusion or recent ETOH use or med interactions. Daughter is appreaciative of the update and this RN reccomends speaking with the DC merchandise planning manager to establish report, call transfered to DC project planner. pt on ms room 110.
--- NOTE | 2025-03-06 11:45 | NUR ---
REPORT RECEIVED FROM CCU RN. PATIENT TRANSFERED TO [facility] VIA BED. PATIENT RESTING IN BED. ALERT AND ORIENTED TO SELF, UNABLE TO TELL THIS RN WHAT HER BIRTHDATE IS AT THIS TIME. PATIENT ANSWERS SIMPLE YES AND NO QUESTIONS APPROPIATLY. DENIES ANY PAIN AT THIS TIME. PATIENT WAS ORIENTED TO ROOM AND CALL LIGHT. BED ALARM IN PLACE.
[2025-03-06] MEDS ORDERED: PHARMACY RENAL DOSE ADJUSTMENT 1 DOSE MISC PO SCH (12:00)
--- NOTE | 2025-03-06 12:45 | NUR ---
RN AND SCHOOL ADMISSIONS REPRESENTATIVE STAFF ATTEMPT TO TRANSFER PATIENT TO BSC. PATIENT ABLE TO STAND WELL, PATIENT UNABLE TO FOLLOW CUES AND OR COORDINATE AND SIT DOWN ON BSC. PATIENT ASSISTED BACK TO BED. NOTED BREIF WET WITH URINE. NEW BREIF PLACED. PUREWICK PLACED. PATIENT WITH CALL LIGHT WITHIN REACH AND BED ALARM ON.
--- NOTE | 2025-03-06 13:45 | NUR ---
BED ALARM SOUNDING. DIGITAL MARKETING COORDINATOR STAFF IN WITH PATIENT ASSISTING PATIENT TO BSC.
--- NOTE | 2025-03-06 14:15 | NUR ---
MD IN WITH PATIENT AND TO DISCUSS POC.
--- NOTE | 2025-03-06 16:23 | NUR ---
REPORTS FROM RN THAT PATIENT'S BED ALARM WAS SOUNDING AND PATIENT REMOVED HER OWN IV. RN IN WITH RONAN AT THIS TIME TO ATTEMPT NEW IV INSERTION.
--- NOTE | 2025-03-06 17:10 | NUR ---
DINNER SET UP FOR PATIENT. RN UNABLE TO START NEW IV ON PATIENT AT THIS TIME. CHARGE NURSE NOTIFIED. NO FURTHER NEEDS CALL LIGHT WITHIN REACH.
--- NOTE | 2025-03-06 18:22 | NUR ---
BED ALARM SOUNDING. PATIENT TRYING TO GET OUT OF BED. UNABLE TO INFORM ASPHALT SMOOTHER OF WHERE SHE IS WANTING TO GO. NOTED PATIENT BREIF TO BE WET. URINE DARK DANI IN COLOR. PATIENT ASSISTED BACK INTO BED AND NEW BREIF PLACED, WELL A NEW PUREWICK WAS PLACED. PATIENT DOES NOT WISH TO EAT DINNER. RN OFFERED ALTERNATIVES WELL ENSURES. PATIENT REFUSED FOOD AT THIS TIME. NO FURTHER NEED. CALL LIGHT WITHIN REACH. BED ALARM ON.
--- NOTE | 2025-03-06 18:40 | NUR ---
SEBASTIAN JACKSON CURRENTLY IN THE ROOM. VITALS AND I&O'S TAKEN. HELP WAS OFFERED AND DECLINED.
--- NOTE | 2025-03-06 19:36 | NUR ---
RECEIVED REPORT, PT ALERT, PLEASANT. NO NEEDS CURRENTLY, CALL LIGHT IN REACH
--- NOTE | 2025-03-06 20:26 | NUR ---
DIRECTOR OF CASEWORK SERVICES OBTAINED VITALS. NO NEW I&O AT THIS TIME. PT STATES NO NEEDS AND CALL LIGHT WITHIN REACH. BED ALARM ON.
--- NOTE | 2025-03-06 20:48 | NUR ---
ASSESSMENT. PT UNABLE TO ANSWER ORIENTATION QUESTIONS, THOUGH RESPONDS LOGICALLY AND FOLLOWS COMMANDS. ANSWERS QUESTIONS APPROPRIATELY IF THEY ARE SHORT, SOMETIMES FORGETS WHAT SHE IS SAYING MIDWAY THROUGH. NO NEEDS AT PRESENT, DENIES PAIN. CALL LIGHT IN REACH, BED ALARM ACTIVE
--- NOTE | 2025-03-06 22:52 | NUR ---
RESPONDING TO BEEPING IV, PT BENDING ELBOW. NO NEEDS AT PRESENT, CALL LIGHT IN REACH
--- NOTE | 2025-03-06 23:55 | NUR ---
PT RESTING IN BED WITH EYES CLOSED, RISE AND FALL OF CHEST NOTED. BED ALARM ACTIVE
[2025-03-07] VITALS (10 sets, daily range): BP systolic 131–162; BP diastolic 66–75
--- NOTE | 2025-03-07 02:32 | NUR ---
PT RESTING IN BED WITH EYES CLOSED, RISE AND FALL OF CHEST SEEN. CALL LIGHT IN REACH
--- NOTE | 2025-03-07 04:48 | NUR ---
RESPONDED TO BEEPING IV. PT ALERT AND RESPONSIVE, THOUGH STILL CONFUSED. NO NEEDS IDENTIFIED. BED ALARM ACTIVE
--- NOTE | 2025-03-07 05:35 | NUR ---
APPELLATE CONFEREE OBTAINED VITALS AND I&O. PT STATES NO NEEDS AT THIS TIME. CALL LIGHT WITHIN REACH AND BED ALARM ON.
[2025-03-07 05:46] LABS: BASOPHILS 0.5 % (0-2); EOSINOPHILS 0.7 % (0-6); HEMATOCRIT 29.7 % (35.0-50.0); HEMOGLOBIN 10.1 g/dL (12.0-18.0); LYMPHOCYTES 15.7 % (24-44); MCH 30.9 (27-36); MONOCYTES 8.4 % (0-12); NEUTROPHILS 74.7 % (39-80); PLATELET COUNT 142 K/uL (140-440); RBC 3.26 M/ul (4.3-5.7); RDW 16.2 (10.5-15.0)
[2025-03-07 06:10] LABS: ALBUMIN 2.6 g/dL (3.4-5.0); ALBUMIN/GLOBULIN RATIO 0.74 (1.1-2.4); ANION GAP 10.2 (7-21); BILIRUBIN, TOTAL 0.7 mg/dL (0.2-1.0); BUN/CREATININE RATIO 12.82 (6.0-28.6); CREATININE, SERUM 0.78 mg/dL (0.55-1.02); MAGNESIUM 1.6 mg/dL (1.8-2.4); PHOSPHORUS, INORGANIC 2.9 mg/dL (2.5-4.9); POTASSIUM 3.2 mmol/L (3.5-5.1); PROTEIN, TOTAL 6.1 g/dL (6.4-8.2)
--- NOTE | 2025-03-07 07:20 | NUR ---
REPORT RECEIVED FROM NIGHT RN. PATIENT RESTING IN BED, DENIES ANY NEEDS AT THIS TIME. IVF INFUSING WNL. CALL LIGHT WITHIN REACH.
--- NOTE | 2025-03-07 08:09 | NUR ---
RN IN ROOM TO ADMINSTER AM MEDICATIONS. PATIENT HAS REMOVED HER IV SITE.
--- NOTE | 2025-03-07 08:18 | NUR ---
RN NOTIFIED CABLE SPOOLER RN FOR NEED OF NEW ULTRA SOUND IV START.
[2025-03-07] MEDS ORDERED: MAGNESIUM SULFATE 2 GM/50 ML BAG IV SCH (09:00)
[2025-03-07] MEDS ORDERED: POTASSIUM CHLORIDE 40 MEQ,LIDOCAINE HCL 1% 40 MG in DEXTROSE 5% 250 ML IV ONE (09:00)
--- NOTE | 2025-03-07 09:50 | NUR ---
PT/OT IN WITH PATIENT AT THIS TIME. PATIENT BREIF CHANGED AND NEW PUREWICK PLACED. LUNGS CTA, HEART SOUNDS REGULAR. PATIENT IS ALERT TO SELF UNABLE TO STATE HER BIRTHDATE FULLY. IS ABLE TO STATE THE MONTH SHE IS BORN IN. NOTED GENERALIZED SWELLING TO LLE UNCHANGED FROM PREVIOUS DAY. PEDAL PULSES INTACT. SKIN REMAINS INTACT. BOARDERED FOAM DRESSING TO COCCXY REMAINS IN PLACE. NO FURTHER NEEDS AT THIS TIME. CALL LIGHT WITHIN REACH BED ALARM ON.
--- NOTE | 2025-03-07 10:15 | NUR ---
PT NOT AVAILABLE FOR VISIT. PROVIDED PRAYER.
--- NOTE | 2025-03-07 10:38 | NUR ---
FLOAT RN IN ROOM WITH PATIENT. NEW ULTRA SOUND IV STARTED.
--- NOTE | 2025-03-07 11:31 | NUR ---
PATIENT ASSISTED TO BSC. NOTED XL FORMEWD BM. PATIENT BACK TO BED. TOLLERATED 2 PA STAND PIVOT TRANSFER WELL. IV SITE REMAINS WNL. SCHEDULED IV MEDICATIONS ADMINSTERED. PATIENT WITH NO FURTHER NEEDS. CALL LIGHT WITHIN REACH. BED ALARM IN PLACE.
--- NOTE | 2025-03-07 12:20 | NUR ---
RN IN TO ROUND ON PATIENT. ASSISTED PATIENT WITH LUNCH SET UP. PATIENT TAKING SMALL BITES OF LUNCH. BED ALARM REMAINS IN PLACE.
[2025-03-07] MEDS ORDERED: BACLOFEN10 MG PO (13:08)
[2025-03-07] MEDS ORDERED: RINVOQ ER15 MG PO (13:09)
--- NOTE | 2025-03-07 13:09 | NUR ---
MED REC COMPLETE
--- NOTE | 2025-03-07 13:38 | NUR ---
PATIENT RESTING IN BED AT THIS TIME. WATCHING TV. DENIES ANY NEEDS. CALL LIGHT WITHIN REACH. BED ALARM ON.
--- NOTE | 2025-03-07 13:48 | NUR ---
PATIENT IS IN HER BED AT THIS TIME, CHISEL WORKER TRIED TO GET HER TO EAT SOME FOOD, SHE REFUSED. CHISEL WORKER CHARTED VITALS AND I&O'S, AND PULLED HER UP IN BED. CALL LIGHT WTIH IN REACH AND NOTHING ELSE NEEDED AT THIS TIME.
--- NOTE | 2025-03-07 15:00 | NUR ---
BED ALARM SOUNDING. PATIENT TRYING TO GET OUT OF BED. PATIENT UNABLE TO COMMUNICATE WHERE SHE IS WANTING TO GO. PATIENT ASSISTED BACK INTO BED. NOTED BREIF TO BE WET. BREIF CHANGED AND VARINDER CARE PROVIDED. NEW PUREWICK APPLIED. NO FURTHER NEEDS CALL LIGHT WITHIN REACH. BED ALARM ON.
--- NOTE | 2025-03-07 15:34 | NUR ---
BED ALARM SOUNDING. PATIENT SITTING ON EDGE OF BED, TEARFUL AT TIMES. NOT WANTED TO GET BACK INTO BED. PATIENT DENIES ANY PAIN. RN OFFERED PATIENT WATER, AND PRN FOR PAIN PATIENT IS RUBBING HER LEFT LEG. PATIENT REFUSED PAIN MEDICATION. PATIENT CONTINUES TO BE TEARFUL. AT BEDSIDE HOWEVER NOT ENGAGED WITH PATIENT. STUDENT NURSE REMAINS AT BEDSIDE WITH PATIENT AT THIS TIME FOR SAFETY.
--- NOTE | 2025-03-07 16:42 | NUR ---
RN IN ROOM WITH PATIENT AT THIS TIME. PATIENT ONE ON ONE AT THIS TIME TO MAINTAIN SAFETY.
--- NOTE | 2025-03-07 16:56 | NUR ---
In with pt for 1:1. Pt is resting supine in bed with HOB elevated to a position of comfort, watching television. Pt denies needs at this time. Call light in reach. IVF Potassium is complete and disconnected from pt at this time.
--- NOTE | 2025-03-07 17:45 | NUR ---
PATIENT RESTING IN BED. REVENUE COORDINATOR REPORTS PAITENT ATE SOME DINNER. NO NEEDS. MEDICAL CODING MANAGER AT BEDSIDE. BED ALARM IN PLACE.
--- NOTE | 2025-03-07 18:44 | NUR ---
PATIENT RESTING IN BED WITH STAFF AT BEDSIDE.
--- NOTE | 2025-03-07 19:35 | NUR ---
RECIEVED REPORT. PT ALERT, CONFUSED. SUPPORT PERSON IN ROOM. NO NEEDS PRESENTLY, BED ALARM ACTIVE.
--- NOTE | 2025-03-07 20:05 | NUR ---
PT STATED NEED TO USE BATHROOM. MEDIA INTERN 1PA WITH FWW TO BSC. RN NOW IN ROOM. PT UNABLE TO GO TO BATHROOM. RN AND MEDIA INTERN ASSISTED PT BACK TO EDGE OF BED. PT BECAME TEARFUL AND RN IN ROOM COMFORTING PT.
--- NOTE | 2025-03-07 20:48 | NUR ---
joe sierra at rn station and asks for pt update, pt okay'd provdiing update. update provided, primary rn aware.
--- NOTE | 2025-03-07 20:48 | NUR ---
PT ASKS WHETHER PT HAS SEEN A COUNSELOR OR PSYCHOLOGIST. WHEN ASKED TO CLARIFY, CONCERED THAT PT IS ANXIOUS AND DEPRESSED, AND WANTING TO GO HOME. DISCUSSED WITH THAT MD HAS EVALUATED HER TO FIND THE SOURCE OF HER CONFUSION. OFFERED TO DISCUSS WITH PT. PT WITH DIFFICULTY EXPRESSING, BUT BECOMES WEEPY, NODS AND SAYS "YEAH" WHEN I OBSERVED THAT SHE MAY FEEL FRUSTRATED AND SCARED TO NOT KNOW WHAT IS GOING ON, AND THAT SHE WOULD LIKE TO GO HOME. DISCUSSED WITH PT AND THAT SHE IS IN THE HOSPITAL TO DETERMINE THE CAUSE OF HER CONFUSION, AND THAT IT HAS IMPROVED FROM YESTERDAY. AFFIRMED THAT IT IS FRUSTRATING TO BE IN AN UNFAMILIAR ENVIRONMENT. PT AGREES. PT AGREES TO STAY IN HOSPITAL TONIGHT. PLAN TO UPDATE PT FREQUENTLY WITH HER MENTAL STATUS AND REORIENT NEEDED. CALL LIGHT IN REACH
--- NOTE | 2025-03-07 21:40 | NUR ---
PT ALERT IN BED, NO NEEDS AT THIS TIME. CALL LIGHT IN REACH, BED ALARM ACTIVE
[2025-03-07] MEDS ORDERED: MELATONIN 3 MG TAB PO SCH (23:05)
--- NOTE | 2025-03-07 23:28 | NUR ---
bed alarm going off, pt assisted back in bed, alarm resumed and call light in reach. pt reoriented to time. no additional needs or concerns.
--- NOTE | 2025-03-07 23:47 | NUR ---
RESPONDED TO BEEPING IV. REPLACED FLUIDS, GIVEN PO TYLENOL AND MELATONIN. PT ALERT IN BED, NO OTHER NEEDS IDENTIFIED. CALL LIGHT IN REACH, BED ALARM ACTIVE
[2025-03-08] VITALS (8 sets, daily range): BP systolic 144–160; BP diastolic 70–80
--- NOTE | 2025-03-08 01:52 | NUR ---
PT ALERT IN BED THROUGH DROWSY. NO NEEDS PRESENTLY, ASSISTED TO READJUST. BED ALARM ACTIVE
--- NOTE | 2025-03-08 03:21 | NUR ---
PT RESTING WITH EYES CLOSED, RISE AND FALL OF CHEST. CALL LGIHT IN REACH
--- NOTE | 2025-03-08 05:05 | NUR ---
PT RESTING WITH EYES CLOSED, RISE AND FALL OF CHEST OBSERVED. CALL LIGHT IN REACH, BED ALARM ACTIVE
[2025-03-08 05:31] LABS: BASOPHILS 0.3 % (0-2); EOSINOPHILS 1.4 % (0-6); HEMATOCRIT 29.9 % (35.0-50.0); HEMOGLOBIN 10.1 g/dL (12.0-18.0); MCH 30.6 (27-36); MCHC 33.7 g/dl (30-36); MCV 90.7 fl (81-99); MONOCYTES 8.5 % (0-12); NEUTROPHILS 76.8 % (39-80); PLATELET COUNT 151 K/uL (140-440); RBC 3.29 M/ul (4.3-5.7)
[2025-03-08 05:47] LABS: ALBUMIN 2.5 g/dL (3.4-5.0); ALBUMIN/GLOBULIN RATIO 0.74 (1.1-2.4); ANION GAP 11.6 (7-21); BILIRUBIN, TOTAL 0.6 mg/dL (0.2-1.0); BUN/CREATININE RATIO 6.32 (6.0-28.6); CALCIUM 7.9 mg/dL (8.5-10.1); CREATININE, SERUM 0.79 mg/dL (0.55-1.02); POTASSIUM 3.6 mmol/L (3.5-5.1); PROTEIN, TOTAL 5.9 g/dL (6.4-8.2)
--- NOTE | 2025-03-08 05:47 | NUR ---
CAN AND RN OBTIANED VITALS AND I&O. PT BRIEF WET. SWEATBAND DRUMMER AND RN CHANGED PT BRIEF, CHUCKS PAD, DRAW SHEET, AND PUREWICK. PT BOOSTED IN BED. PT STATES NO FURTHER NEEDS AT THIS TIME. CALL LIGHT WITHIN REACH AND BED ALARM ON.
--- NOTE | 2025-03-08 07:05 | NUR ---
REPORT REC'D FROM SEBASTIAN BERG. PT AWAKE IN BED, ORIENTED ONLY TO SELF. PT VERBALIZES NO C/O. SIDERAILS UP X 3, CALL TIJERINA IN REACH, BED IN LOW POSITON AND LOCKED.
--- NOTE | 2025-03-08 08:13 | NUR ---
PATIENT'S CPOX SENSOR HAD FALLEN OFF. A NEW SENSOR WAS PLACED. NO CARES WERE REQUESTED. CALL LIGHT AND PERSONAL ITEMS ARE WITHIN REACH.
--- NOTE | 2025-03-08 08:18 | NUR ---
PATIENT IN BED AT THIS TIME. THIS CHLORINATOR OPERATOR CHANGED PATIENTS CPOX FINGER STRIP AND SET PATIENT UP FOR BREAKFAST. CALL LIGHT WITHIN REACH, NO FURTHER NEEDS AT THIS TIME.
[2025-03-08] MEDS ORDERED: APIXABAN 2.5 MG TAB PO SCH (09:00)
[2025-03-08] MEDS ORDERED: LEVOTHYROXINE SODIUM 50 MCG TAB PO SCH (09:00)
[2025-03-08] MEDS ORDERED: ESCITALOPRAM OXALATE 10 MG TAB PO SCH (09:00)
--- NOTE | 2025-03-08 09:34 | NUR ---
PT RESTING IN BED, REMAINS CONFUSED AND WITHDRAWN FROM CONVERSATION, NOT EATING, CONTINUES TO NOT WANT TO TAKE MEDICATIONS. PT INSTRUCTED TO CALL FOR ASSISTANCE, CALL LIGHT IN REACH, BED LOW POSITION AND LOCKED, SIDERAILS UP X3
--- NOTE | 2025-03-08 10:42 | NUR ---
PT AWAKE IN BED, CONTINUES TO NOT PARTICIPATE IN CARE, DECLINED SESSION WITH THERAPY. PT OFFERED, NUTRITION AND LIQUIDS,AND MEDICATIONS. PT DECLINED. SIDERAILS REMAIN UP X3, CALL TIJERINA IN REACH, BED IN LOW POSITION AND LOCKED.
--- NOTE | 2025-03-08 10:49 | NUR ---
PT ATTEMPTING TO GET OOB, BED ALARM ALERTED. PT UNCOOPERATIVE WITH CARE, QUICKLY BECAME AGITATED. PT LEFT WITH BED ALARM ACTIVATED, CALL TIJERINA IN REACH. IN DIRECT VIEW OF NURSING STATION
--- NOTE | 2025-03-08 11:32 | NUR ---
PT ASSISTED OOB X2 PERSON ASSIST TO BSC FOR BM. PT RETURNED TO EDGE OF BED, PT DAUGHTER IN TO SEE PATIENT. BED LOW POSITION AND LOCKED. CALL TIJERINA IN REACH
--- NOTE | 2025-03-08 12:06 | NUR ---
PT RETURNED TO BED. SIDERAILS UP X3, CALL TIJERINA IN REACH, BED IN LOW POSITION AND LOCKED. PT REMAINS DISORIENTED TO TIME.
--- NOTE | 2025-03-08 13:06 | NUR ---
PT RESTING IN BED, EXAMINED BY . NO C/O VOICED AT THIS TIME.
[2025-03-08] MEDS ORDERED: THIAMINE HCL 500 MG in DEXTROSE 5% 100 ML IV SCH (13:10)
--- NOTE | 2025-03-08 14:24 | NUR ---
PT DAUGHTER RETURNED FOR VISITATION. PT WITHOUT C/O AT THIS TIME.
--- NOTE | 2025-03-08 15:12 | NUR ---
PT ASSISTED OOB TO BSC, NO VOID OR BM. PT INCONTINENT OF URINE. LINEN CHANGED, SKIN WIPED, PUREWICK PLACED. WAFFLE MATTRESS APPLIED. SPOUSE AT BEDSIDE. SIDERAILS UP X3, CALL TIJERINA IN REACH, BED IN LOW POSITION, LOCK, AND BED ALARM ACTIVATED.
--- NOTE | 2025-03-08 15:18 | NUR ---
PATIENT WAS ASSISTED TO COMMODE. BEDLINENS WERE CHANGED AND A WAFFLE MATTRESS PUT ON FOR COMFORT. A NEW PUREWICK WAS PLACED AT 1500. WARM BLANKETS WERE REQUESTED. CALL LIGHT AND PERSONAL ITEMS ARE WITHIN REACH.
--- NOTE | 2025-03-08 16:32 | NUR ---
PT REMOVED KERLIX AND COBAN FROM IV SITE. IV SITE DRESSING CHANGED, RE-WRAPPED WITH COBAN AND SECURED WITH TAPE. PT ALSO REMOVED PUREWICK AND PULSE OXIMETRY. PT REFUSES TO HAVE EITHER PLACED. PT SITTING ON SIDE OF BED, ALARM ACTIVATED. CALL TIJERINA IN REACH. PT RE-ORIENTED TO PLACE, TIME AND SITUATION.
--- NOTE | 2025-03-08 16:44 | NUR ---
PATIENT WAS STOPPED FROM PULLING OUT THEIR IV. SEBASTIAN FERNANDO APLLIED A NEW COVER FOR IT. PATIENT REFUSED A NEW CPOX SENSOR. THEY STATED THEY "JUST WANT TO BE LEFT ALONE."
--- NOTE | 2025-03-08 18:26 | NUR ---
PT CARED FOR T/O SHIFT. PT HAS REMAINED CONFUSED AND DISORIENTED, AGITATED AT TIMES. CURRENTLY REFUSING TO WEAR SPO2. IVF INFUSING TO R FA @ 125ML/HR NS. PT SPOUSE IS TO BRING IN HOME CPAP, HOWEVER PATIENT STATES SHE WILL NOT USE IT. CONTINUES TO C/O PAIN TO LLE WITH AMBULATION TO BSC. POOR PO INTAKE TODAY.
--- NOTE | 2025-03-08 18:38 | NUR ---
PATIENT REFUSED PUREWICK. BRIEF WAS CHECKED AT 1814 AND WAS STILL DRY. THEY ALLOWED VITALS TO BE TAKEN BUT REFUSED ANY OTHER CARES.
--- NOTE | 2025-03-08 19:44 | NUR ---
RECEIVED REPORT. REPORTS PT NEEDS THE RESTROOM. CHANGED PT BRIEF AND LINENS, APPLIED NEW COOKIE. NO OTHER NEEDS PRESENTLY. SUPPORTIVE FAMILY IN ROOM, CALL LIGHT IN REACH
--- NOTE | 2025-03-08 20:52 | NUR ---
NIRU CONTINUES TO DECLINE USE OF CPAP...LAST NIGHT SHE DECLINED USE OF A HOSPITAL RESMED CPAP, TONIGHT SHE DECLINED USE OF HER HOME CPAP UNIT. WAS IN ROOM TONIGHT WHEN SHE DECLINED. RN NOTIFIED.
--- NOTE | 2025-03-08 21:20 | NUR ---
YEVENING MEDS. PT ALERT IN BED, WATCHING MOVIE WITH . DECLINES VITALS FOR NOW. CALL LIGHT IN REACH, BED ALARM ACTIVE
--- NOTE | 2025-03-08 22:32 | NUR ---
PT ATTEMPTING TO GET OUT OF BED TO LEAVE FOR HOME WTIH . WHEN ENTERED THE ROOM, PT STATED "I'M NOT ARGUING WITH YOU.". WHEN ASKED, SHE CORRECTLY IDENTIFIED THAT SHE WAS IN THE HOSPITAL, BUT WAS NOT ABLE TO STATE WHY. OBSERVED TO PT THAT SHE APPEARS FRUSTRATED, AND UPSET THAT HER IS LEAVING WITHOUT HER. PT STATES "THIS IS BULLSHIT." PROVIDED THERAPEUTIC LISTENING AND VALIDATED PT'S FEELINGS OF FRUSTRATION AND LOSS OF CONTROL. PT EVENTUALLY BECAME TEARY AND AGREES IT HAS BEEN HARD ON HER. SHE AGREES TO STAY TONIGHT. GIVEN WARM BLANKETS AND REFILLED WATER. CALL LIGHT IN REACH, BED ALARM ACTIVE
--- NOTE | 2025-03-09 01:12 | NUR ---
iv pump alarming, new bag iv fluids hung and infusing as directed, iv site wnl. bed alarm remains on and call light in reach. pt awoke while in room, no needs or concerns verbalized.
--- NOTE | 2025-03-09 03:18 | NUR ---
PT RESTING IN BED WITH EYES CLOSED, RISE ADN FALL OF CHEST OBSERVED. CALL LIGHT IN REACH, BED ALARM ACTIVE
[2025-03-09 05:05] VITALS: BP 161/104
[2025-03-09 05:06] VITALS: BP 161/104
--- NOTE | 2025-03-09 05:06 | NUR ---
VITALS, I&OS. GIVEN WARM BLANKET. NO OTHER REQUESTS, BED ALARM ACTIVE. CALL LIGHT IN REACH
--- NOTE | 2025-03-09 05:28 | NUR ---
coco in lab notified this rn that first individual from lab unable to draw am labs. when she went into room pt refused lab draw-2nd attempt. this rn into room and attempted to educated pt on reason and benefits to draw and that poc is partially based on lab results, pt states "no, i don't care". primary rn updated. call light in reach and bed alarm remains on for safety.
--- NOTE | 2025-03-09 06:24 | NUR ---
PT JUDE, WOULD LIKE TO GO HOME. DECLINED LABS IN AM, AND DECLINED CPAP AT NIGHT. ORIENTED TO SELF AND PLACE. DID NOT KNOW DATE OR WHY SHE IS IN HOSPITAL. L EYE BRUISE FROM PREVIOUS FALL. PUREWICK IN PLACE WITH PLENTY UOP OVERNIGHT. 2PA OUT OF BED. HAS R SIDED FOOT DROP. R ULTRASOUND GUIDED 20G RUNNING NS @125ML. PT 3 DAYS WITHOUT BUPINEPHRINE. CONFUSION SLIGHTLY IMPROVED THOUGH NOT RESOLVED. PLAN FOR DELIRIUM PRECAUTIONS AND REORIENT NEEDED.
--- NOTE | 2025-03-09 07:27 | NUR ---
PT RESTING SOUNDLY AT TIME OF SHIFT REPORT, LEFT UNDISTURBED. FRESH H20 AND CALL LIGHT IN REACH.
--- NOTE | 2025-03-09 07:44 | NUR ---
PATIENT IN BED RESTING WITH EYES CLOSED. WHITE BOARD UPDATED. CALL LIGHT IN REACH.
[2025-03-09 07:47] VITALS: BP 171/69
--- NOTE | 2025-03-09 09:05 | NUR ---
PT COOPERATIVE AND ANSWERS QUESTIONS TAKES MEDS WITHOUT OBJECTION. SET UP FOR BREAKFAST ASSISTED TO CUT F/TOAST ETC PT EATS NONE OF IT, SIPS MILK ONLY. OFFERED ENSURE AND OTHER CHOICES PT DECLINES, SHE IS SITTING UP WATCHING TV AT THIS TIME DENIES DISCOMFORTS OR NEEDS OF. CALL LIGHT IN REACH BED ALARM IS ON
--- NOTE | 2025-03-09 10:03 | NUR ---
PATIENT IN BED AT THIS TIME. VITALS DONE EARLIER, I&O'S DONE AND CHARTED NOW. CALL LIGHT IN REACH. NO NEEDS AT THIS TIME.
--- NOTE | 2025-03-09 10:26 | NUR ---
PT AMBULATING IN CALVERT WITH PHYS THERAPY.
[2025-03-09 10:27] VITALS: BP 171/69
--- NOTE | 2025-03-09 10:28 | NUR ---
PT WORKED WITH P/T AMBULATING THE CALVERT RETURNS TO SIT ON EDGE OF BED. ACTIVITY WELL TOLERATED
--- NOTE | 2025-03-09 13:15 | NUR ---
DISCUSSED DISCHARGE INSTRUCTIONS WITH PT AND SPOUSE, BOTH VERBALIZE UNDERSTANDING. PT DRESSES SELF. IV REMOVED, TIP INTACT, GAUZE AND COBAN DRESSING APPLIED TO SITE, PT TOLERATED WELL. VSS. PT LEAVE UNIT VIA WHEELCHAIR TO PRIVATE CAR DRIVEN BY SPOUSE.
== END 2025-03-09 13:15 | disposition home or self-care (01) | DRG 917 ==
LOC: ED 18:39 → CCU 18:41 → MS 03-06 09:34 → CCU 03-06 09:34 → MS 03-06 11:45
PROVIDERS: Internal Medicine; ADMIT Family Medicine; ATTEND Family Medicine
DX: T50.7X1A Poisoning by analeptics and opioid receptor antagonists, accidental (unintentional), initial encounter (principal); G92.8 Other toxic encephalopathy; J18.9 Pneumonia, unspecified organism; G89.29 Other chronic pain; M79.672 Pain in left foot; Z88.8 Allergy status to other drugs, medicaments and biological substances; G25.81 Restless legs syndrome; I10 Essential (primary) hypertension; E03.9 Hypothyroidism, unspecified; F32.A Depression, unspecified; F41.9 Anxiety disorder, unspecified; Z90.710 Acquired absence of both cervix and uterus; Z98.890 Other specified postprocedural states; Z98.1 Arthrodesis status
CPT/HCPCS: 36415; 70450; 70486; 71045; 72125; 72170; 73590; 73610; 80053; 80307; 81003; 83605; 83735; 84100; 84484; 85025; 85379; 93005; 93010; 93971; 94762; 96365; 97110; 97162; 97166; 97530; 97535; 99285-25; A9270; G0378; G0480; J0456; J0696; J3411; J3475; J3480; J3490; J7030; J7060; J7121

== ENCOUNTER 2025-03-13 15:51 | Emergency (ER) | payer MEDICARE ==
[~2025-03-13] VITALS: Ht 170.2 cm; Wt 74.0 kg
--- OUTSIDE RECORDS SUMMARY | 2025-03-13 15:58 | XMS ---
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 - 2 Visits in 30 Days CARE PROVIDERS -, Sampson Amador- Dentist: Purchasing Buyer [facility] PHONE: [phone] Adrienne has no Care Guidelines for this patient. Silver VISIT COUNT (12 MO.) [address] TOTAL 7 NOTE: Visits indicate total known visits. ED/UCC VISIT TRACKING (12 MO.) 03/13/2025 15:52 [facility] TYPE: Emergency COMPLAINT: - CHEST PAIN 03/05/2025 18:40 [facility] TYPE: Emergency COMPLAINT: - ALTERED MENTAL STATUS 02/19/2025 08:22 [facility] TYPE: Emergency COMPLAINT: - STROKE SYMPTOMS 01/12/2025 14:45 [facility] TYPE: Emergency DIAGNOSES: - Elevation of levels [...] - Hyperkalemia - Hypothyroidism, unspecified - Other [facility] (current) drug therapy - ST elevation (STEMI) [...] replacement therapy - Hypothyroidism, unspecified - Other m[facility] (current) drug therapy - Pure hypercholesterolemia, unspecified [...] replacement therapy - Hypothyroidism, unspecified - Other keno terminal operator (current) drug therapy - Pure hypercholesterolemia, unspecified - Restless legs syndrome - Rheumatoid arthritis, unspecified INPATIENT VISIT TRACKING (12 MO.) 03/06/2025 09:34 [facility] TYPE: Medical Surgical COMPLAINT: - ALTERED MENTAL STATUS/COMMUNITY ACQUIRED PNEUMONIA DIAGNOSES: - Acquired absence of both cervix and uterus - Allergy status to other drugs, medicaments and biological substances - Anxiety disorder, unspecified - Arthrodesis status - Depression, unspecified - Essential (primary) hypertension - Hypothyroidism, unspecified - Other chronic pain - Other specified postprocedural states - Other toxic encephalopathy - Pain in left foot - Pneumonia, unspecified organism - Poisoning by analeptics and opioid receptor antagonists, accidental (unintentional), initial encounter - Restless legs syndrome 02/19/2025 13:[address] [facility] TYPE: Medical Surgical COMPLAINT: - SEPTIC [...] - Insomnia, unspecified - Insomnia, unspecified - long-term (current) use of anticoagulants - long-term (current) use of anticoagulants - Occlusion and stenosis of right carotid artery - Occlusion and stenosis of right carotid artery - Orthostatic hypotension - Other encephalopathy - Other encephalopathy - Other keno terminal operator (current) drug therapy - Other keno terminal operator (current) drug therapy - Other specified postprocedural [...] Severe sepsis with septic shock 01/12/2025 14:45 [facility] TYPE: Internal Medicine DIAGNOSES: - Acute and [...] organism - Severe sepsis with septic shock [email or web address]
[2025-03-13] MEDS ORDERED: ASPIRIN 81 MG CHEW PO ONE (16:00)
[2025-03-13 16:15] LABS: BASOPHILS 0.7 % (0-2); EOSINOPHILS 0.5 % (0-6); HEMATOCRIT 33.4 % (35.0-50.0); HEMOGLOBIN 11.4 g/dL (12.0-18.0); LYMPHOCYTES 13.8 % (24-44); MCH 30.4 (27-36); MCHC 34.2 g/dl (30-36); MCV 88.9 fl (81-99); MONOCYTES 6.6 % (0-12); NEUTROPHILS 78.4 % (39-80); PLATELET COUNT 294 K/uL (140-440); RBC 3.76 M/ul (4.3-5.7); RDW 15.4 (10.5-15.0)
[2025-03-13 16:45] LABS: ALBUMIN 3.2 g/dL (3.4-5.0); ALBUMIN/GLOBULIN RATIO 0.84 (1.1-2.4); ANION GAP 9.3 (7-21); BILIRUBIN, TOTAL 0.4 mg/dL (0.2-1.0); BUN/CREATININE RATIO 14.14 (6.0-28.6); CALCIUM 8.2 mg/dL (8.5-10.1); CREATININE, SERUM 0.99 mg/dL (0.55-1.02); MAGNESIUM 1.6 mg/dL (1.8-2.4); POTASSIUM 3.3 mmol/L (3.5-5.1)
[2025-03-13 18:12] VITALS: BP 166/97
--- NOTE | 2025-03-14 19:13 | EKG ---
[facility] [address] [facility] [place] [address] Signed Sinus bradycardia Otherwise normal ECG When compared with ECG of 05-MAR-2025 20:40, No significant change was found Confirmed by Jeremy Rico MD ([id number]) on 03/14/2025 7:12:54 PM Electronically Signed By: JEREMY RICO MD 03/14/251912 PATIENT NAME: NIRU ROBERTS Electrocardiogram DATE OF : 56 PHYSICIAN: JEREMY RICO MD REPORT #: [id number] REPORT IS CONFIDENTIAL AND NOT TO BE RELEASED WITHOUT AUTHORIZATION
== END 2025-03-13 17:59 | disposition home or self-care (01) ==
LOC: ED 15:51
PROVIDERS: Emergency Medicine
DX: R07.89 Other chest pain (principal); I10 Essential (primary) hypertension; G47.33 Obstructive sleep apnea (adult) (pediatric); Z88.5 Allergy status to narcotic agent; Z88.8 Allergy status to other drugs, medicaments and biological substances; Z79.01 Long term (current) use of anticoagulants; Z79.899 Other long term (current) drug therapy
CPT/HCPCS: 36415; 71045; 80053; 83735; 83880; 84484; 85025; 93005; 93010; 99285-25; A9270

== ENCOUNTER 2025-06-13 11:11 | Emergency (ER) | payer MEDICARE ==
[~2025-06-13] VITALS: Ht 170.2 cm; Wt 71.7 kg
--- OUTSIDE RECORDS SUMMARY | 2025-06-13 11:14 | XMS ---
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 EBert VISIT COUNT (12 MO.) 7 [facility] TOTAL 8 NOTE: Visits indicate total known visits. ED/UCC VISIT TRACKING (12 MO.) 06/13/2025 11:11 [facility] TYPE: Emergency COMPLAINT: - LT LEG PAIN 03/13/2025 15:52 [facility] TYPE: Emergency COMPLAINT: - CHEST PAIN DIAGNOSES: - Allergy status to narcotic agent - Allergy status to other drugs, medicaments and biological substances - Essential (primary) hypertension - prison (current) use of anticoagulants - Obstructive sleep apnea (adult) (pediatric) - Other chest pain - Other lobsterman (current) drug therapy 03/05/2025 18:40 [facility] TYPE: Emergency COMPLAINT: - ALTERED MENTAL STATUS 02/19/2025 08:22 [facility] TYPE: Emergency COMPLAINT: - STROKE SYMPTOMS 01/12/2025 14:45 [facility] TYPE: Emergency DIAGNOSES: - Elevation of [...] - Hyperkalemia - Hypothyroidism, unspecified - Other penitentiary (current) drug therapy - ST elevation (STEMI) [...] replacement therapy - Hypothyroidism, unspecified - Other lobsterman (current) drug therapy - Pure hypercholesterolemia, unspecified [...] replacement therapy - Hypothyroidism, unspecified - Other lobsterman (current) drug therapy - Pure hypercholesterolemia, unspecified [...] encounter - Restless legs syndrome 02/19/2025 13:01 [facility] TYPE: Medical [...] - Insomnia, unspecified - Insomnia, unspecified - intermediate manager (current) use of anticoagulants - intermediate manager (current) use of anticoagulants - Occlusion and stenosis of right carotid artery - Occlusion and stenosis of right carotid artery - Orthostatic hypotension - Other encephalopathy - Other encephalopathy - Other lobsterman (current) drug therapy - Other penitentiary (current) drug therapy - Other specified postprocedural [...] Severe sepsis with septic shock 01/12/2025 14:45 [facility] TYPE: Internal Medicine DIAGNOSES: - Acute [...] organism - Severe sepsis with septic shock [id number]
[2025-06-13 11:47] LABS: BASOPHILS 0.5 % (0.1-1.2); EOSINOPHILS 0.7 % (0.7-5.8); LYMPHOCYTES 14.9 % (19.3-51.7); MCH 28.5 PG (25.6-32.2); MCHC 33.1 g/dL (32.2-35.5); MCV 85.9 fL (79.4-94.8); MONOCYTES 9.4 % (4.7-12.5); NEUTROPHILS 74.5 % (34.0-71.1); RBC 3.83 M/uL (3.93-5.22)
[2025-06-13 11:56] LABS: BLOOD/HGB, URINE SMALL (Negative); KETONE, URINE NEGATIVE (Negative); LEUK ESTERASE, URINE NEGATIVE (negative); NITRITE, URINE NEGATIVE (negative)
[2025-06-13 12:05] LABS: BACTERIA, URINE NONE SEEN /hpf (negative); CASTS, URINE NONE SEEN \\lpf; CRYSTALS, URINE NONE SEEN (0-1+); EPITHELIAL CELLS, URINE SQUAMOUS 2+ /lpf (0-1+); REFLEX CULTURE, URINE No (No)
[2025-06-13 12:09] LABS: ALCOHOL, MEDICAL <3 ng/dL (<3); ALT (SGPT) 35 U/L (14-59); AST (SGOT) 35 U/L (15-37); GLOMERULAR FILTRATION RATE,EST 68 mL/min (>60); PROTEIN, TOTAL 6.8 g/dL (6.4-8.2); UREA NITROGEN 14 mg/dL (7-18)
[2025-06-13 12:19] LABS: AMPHETAMINES, URINE NEGATIVE (NEGATIVE); BARBITURATES, URINE NEGATIVE (NEGATIVE); BENZODIAZEPINE, URINE NEGATIVE (NEGATIVE); CANNABINOID, URINE NEGATIVE (NEGATIVE); COCAINE, URINE NEGATIVE (NEGATIVE); ECSTASY, URINE NEGATIVE (NEGATIVE); FENTANYL, URINE NEGATIVE (NEGATIVE); METHADONE, URINE NEGATIVE (NEGATIVE); OPIATES, URINE NEGATIVE (NEGATIVE); OXYCODONE, URINE NEGATIVE (NEGATIVE); PHENCYCLIDINE, URINE NEGATIVE (NEGATIVE)
[2025-06-13 13:25] VITALS: BP 104/85
== END 2025-06-13 13:27 | disposition home or self-care (01) ==
LOC: ED 11:11
PROVIDERS: Emergency Medicine
DX: S90.122A Contusion of left lesser toe(s) without damage to nail, initial encounter (principal); S90.32XA Contusion of left foot, initial encounter; M79.89 Other specified soft tissue disorders; I10 Essential (primary) hypertension; E03.9 Hypothyroidism, unspecified; E78.00 Pure hypercholesterolemia, unspecified; G47.30 Sleep apnea, unspecified; X58.XXXA Exposure to other specified factors, initial encounter; Z79.899 Other long term (current) drug therapy; Z88.1 Allergy status to other antibiotic agents; Z88.5 Allergy status to narcotic agent
CPT/HCPCS: 36415; 73630; 80053; 80307; 81001; 85025; 93971; 99284-25; G0480

== ENCOUNTER 2025-08-04 05:44 | Day surgery (SDC) | payer MEDICARE ==
[~2025-08-04] VITALS: Ht 170.2 cm; Wt 73.0 kg
[~2025-08-04 05:44] MED LIST changes: +LACTATED RINGER'S 1,000 ML IV SCH; +METOPROLOL SUCC50 MG PO
[2025-08-04] MEDS ORDERED: CLINDAMYCIN PHOSPHATE/D5W 900 MG/50 ML PIGGYBACK ONE (05:54)
[2025-08-04] MEDS ORDERED: SODIUM CHLORIDE 0.9% 20 ML IV ONE (06:00)
[2025-08-04] MEDS ORDERED: DEXAMETHASONE SOD PHOS 4 MG/ML VIAL ONE (06:00)
[2025-08-04] MEDS ORDERED: LIDOCAINE HCL 2% 5 ML SDV ONE (06:00)
[2025-08-04] MEDS ORDERED: MIDAZOLAM HCL 2 MG/2 ML VIAL ONE (06:00)
[2025-08-04] MEDS ORDERED: Ropivacaine HCl 0.5% 30 ML VIAL ONE (06:00)
[2025-08-04 06:08] VITALS: BP 138/80
[2025-08-04] MEDS ORDERED: MIDAZOLAM HCL 2 MG/2 ML VIAL IV PRN (06:15)
[2025-08-04] MEDS ORDERED: IBLOOD GLUCOSE TEST STRIP 1 EA TEST VI PRN ×2 (06:15→07:00)
[2025-08-04] MEDS ORDERED: fentaNYL citrate 50 MCG/ML SDV IV PRN (06:15)
[2025-08-04] MEDS ORDERED: NALOXONE HCL 0.4 MG SYR IV PRN (06:15)
[2025-08-04] MEDS ORDERED: CEFAZOLIN SODIUM 2 GM in SODIUM CHLORIDE 0.9% 100 ML IV SCH (07:00)
[2025-08-04] MEDS ORDERED: CLINDAMYCIN PHOSPHATE/D5W 900 MG/50 ML PIGGYBACK IV SCH (07:00)
[2025-08-04] MEDS ORDERED: LIDOCAINE HCL 1% 5 ML SDV INJ ONE (07:00)
--- NOTE | 2025-08-04 07:30 | NUR ---
PT NOT AVAILABLE FOR VISIT. PROVIDED PRAYER.
[2025-08-04] MEDS ORDERED: HYDROCODON-ACE1 EA11 PO (07:57)
[2025-08-04] MEDS ORDERED: HYDROCODONE/ACETA 7.5/325 TAB PO PRN (08:00)
--- NOTE | 2025-08-04 08:03 | NUR ---
08/04/25 0803 Jenni Hwang PT TO PACU WITH ORAL AIRWAY IN PLACE THEN REMOVED UPON ENTERING PACU. PT AWAKE AND MOVING AROUND IN BED. ICE PLACED UNDER LT ELBOW.
[2025-08-04 08:20] VITALS: BP 103/62
--- NOTE | 2025-08-04 08:47 | NUR ---
0820-PT BACK TO ROOM FROM PACU ON RA. RECEIVED REPORT FROM VERÓNICA CORTES. PT IS AWAKE. RESP EVEN AND UNLABORED. DENIES PAIN. LEFT ARM IN ELEVATED ON PILLOW WITH ICE PACK IN PLACE. PT DRINKING WATER AND EATING CRACKERS. NO OTHER NEEDS AT THIS TIME. CALL LIGHT WITHIN REACH.
[2025-08-04 09:17] VITALS: BP 117/67
--- NOTE | 2025-08-04 12:43 | NUR ---
PEBBLES 0917-PT IS LAYING IN BED AWAKE. RESP EVEN AND UNLABORED. PT DENIES PAIN AND NAUSEA. L ARM IS ELEVATED WITH PILLOW AND ICE PACK IN PLACE. PT IS READY TO GO HOME. PEBBLES 0920-THIS RN HELPS PT GET DRESSED. L ARM IN SLING.
--- NOTE | 2025-08-04 12:44 | NUR ---
PEBBLES 0930-WENT OVER DISCHARGE INSTURCTIONS WITH PT. ALL QUESTIONS ANSWERED. WENT OVER POSTOP MEDICATIONS. PT AMBULATES WITH CANE TO WHEELCHAIR. RIDE PROVIDED TO FRONT OF HOSPITAL WHERE WAS WAITING WITH THE CAR.
[2025-08-04] MEDS ORDERED: SEVOFLURANE 250 ML BTL INH ONE (16:58)
[2025-08-04] MEDS ORDERED: CELECOXIB 200 MG CAP PO SCH (17:00)
--- NOTE | 2025-08-06 07:54 | OR ---
[facility] [address] [place], [place] [address] Signed DATE OF OPERATION: 08/04/2025 SURGEON: Jane Hwang MD PREOPERATIVE DIAGNOSIS: Severe ulnar neuritis, left. POSTOPERATIVE DIAGNOSIS: Severe ulnar neuritis, left. PROCEDURE PERFORMED: Left ulnar nerve transposition subcutaneous. HUMAN RESOURCES EXECUTIVE: None. ANESTHESIA: General. BLOOD LOSS: None. TOURNIQUET TIME: 32 minutes. BRIEF HISTORY: Ale is a 64-year-old female with pain and numbness in her hand and pain in her elbow. Risks and benefits of operative treatment were discussed with her after nerve conduction studies confirmed significant ulnar neuritis. DESCRIPTION OF PROCEDURE: Once consent was obtained, she was taken to the operating room. After adequate anesthesia, she was placed on OR table and all downside pressure points were well padded. Hand table was brought in and the arm was prepped and draped in the standard sterile fashion. The incision was marked out, centered over the medial epicondyle and taken an inch each direction. The arm was then exsanguinated using an Esmarch bandage. Tourniquet inflated to 200 mmHg. A standard curvilinear incision was taken through skin and subcutaneous tissue and skin flaps were developed anteriorly and posteriorly. The roof of the cubital tunnel was then carefully opened and the ulnar nerve was visualized. The ulnar nerve was somewhat attenuated, was fairly adhesed in the cubital tunnel. It Electronically Signed By: JANE HWANG MD 08/06/25 0754 PATIENT NAME: ALE ROBERTS OPERATIVE REPORT DATE OF : 56 REPORT #: [id number] PHYSICIAN: JANE HWANG MD PCP: SHA BOYD MD REPORT IS CONFIDENTIAL AND NOT TO BE RELEASED WITHOUT AUTHORIZATION [facility] [address] [place], [place] [address] Signed was carefully dissected free of surrounding soft tissue using loupe magnification. It was dissected proximally a little over an inch distally an inch and half. The triceps intermuscular septum was removed. The nerve was mobilized from the vascular plexus posteriorly. It was then transposed anteriorly and removed significantly without any tethering. The fascial flap was then developed and sewn over the ulnar nerve with 3-0 Monocryl under direct visualization using the loops. At the end of this portion, then we were able to move back and forth and it moved freely. Once this was completed, the wound was copiously irrigated with normal saline, closed in layers using 3-0 Monocryl for the subcutaneous tissue and skin. We did close the posterior pouch using 3-0 Monocryl. The wound was then sealed with LiquiBand and Steri-Strips and dressed with Allevyn and Chadwick wrap and she was placed in a hinged elbow brace locked in 90. She tolerated the procedure well. All sponge, needle, and instrument counts were correct. Jane Hwang MD BA/FRANKY /[id number] Copies: ~ Electronically Signed By: JANE HWANG MD 08/06/25 0754 PATIENT NAME: ALE ROBERTS OPERATIVE REPORT DATE OF : 56 REPORT #: [id number] PHYSICIAN: JANE HWANG MD PCP: SHA BOYD MD REPORT IS CONFIDENTIAL AND NOT TO BE RELEASED WITHOUT AUTHORIZATION
== END 2025-08-04 09:30 | disposition home or self-care (01) ==
LOC: DS 05:44
PROVIDERS: ATTEND Specialist
PROC: 01S Peripheral Nervous System, Reposition (ICD-10-PCS; principal; 2025-08-04 07:00)
DX: G56.22 Lesion of ulnar nerve, left upper limb (principal); G89.18 Other acute postprocedural pain; G58.8 Other specified mononeuropathies; M06.9 Rheumatoid arthritis, unspecified; I10 Essential (primary) hypertension; E78.00 Pure hypercholesterolemia, unspecified; K21.9 Gastro-esophageal reflux disease without esophagitis; Z79.01 Long term (current) use of anticoagulants; Z79.899 Other long term (current) drug therapy; Z88.1 Allergy status to other antibiotic agents; Z88.5 Allergy status to narcotic agent
CPT/HCPCS: 01710; 64415; J1100; J2003; J2250; J2704; J2795; J3490; J7121

== ENCOUNTER 2025-08-17 08:55 | Emergency (ER) | payer MEDICARE ==
[~2025-08-17] VITALS: Ht 170.2 cm; Wt 77.9 kg
[~2025-08-17 08:55] MED LIST changes: +HYDROCODON-ACE1 EA11 PO; -LACTATED RINGER'S 1,000 ML IV SCH
[2025-08-17] MEDS ORDERED: BUSPIRONE HCL5 MG PO (09:24)
[2025-08-17] MEDS ORDERED: ONDANSETRON 4 MG TAB ODT SL ONE (09:45)
[2025-08-17 09:50] LABS: BASOPHILS 0.6 % (0.1-1.2); EOSINOPHILS 3.2 % (0.7-5.8); LYMPHOCYTES 17.3 % (19.3-51.7); MCH 29.7 PG (25.6-32.2); MCHC 33.0 g/dL (32.2-35.5); MCV 90.2 fL (79.4-94.8); MONOCYTES 14.0 % (4.7-12.5); NEUTROPHILS 64.7 % (34.0-71.1); RBC 4.17 M/uL (3.93-5.22)
[2025-08-17 10:02] LABS: INR 0.99 (0.80-1.30); PROTIME 12.4 Sec (11.2-14.2)
[2025-08-17 10:06] LABS: ALT (SGPT) 23.0 U/L (14-59); AST (SGOT) 22.0 U/L (15-37); GLOMERULAR FILTRATION RATE,EST 61.0 mL/min (>60); PROTEIN, TOTAL 6.5 g/dL (6.4-8.2); UREA NITROGEN 22.0 mg/dL (7-18)
[2025-08-17] MEDS ORDERED: ONDANSETRON ODT8 MG PO (10:30)
[2025-08-17] MEDS ORDERED: CHLORDIAZEPOXID25 MG PO (10:30)
[2025-08-17] MEDS ORDERED: NALTREXONE HCL50 MG PO (10:30)
[2025-08-17 10:38] VITALS: BP 111/93
== END 2025-08-17 10:38 | disposition home or self-care (01) ==
LOC: ED 08:55
PROVIDERS: Emergency Medicine
DX: F10.10 Alcohol abuse, uncomplicated (principal); I10 Essential (primary) hypertension; E03.9 Hypothyroidism, unspecified; E78.00 Pure hypercholesterolemia, unspecified; G47.30 Sleep apnea, unspecified; Z79.899 Other long term (current) drug therapy; Z88.5 Allergy status to narcotic agent; Z88.1 Allergy status to other antibiotic agents
CPT/HCPCS: 36415; 80053; 83735; 85025; 85610; 85730; 99284; A9270